=== PATIENT | male | born 1985 | race Caucasian/White ===

== ENCOUNTER 2017-11-28 14:20 | Emergency (ER) | payer OTHER ==
[2017-11-28 14:41] VITALS: BP 135/89
--- NOTE | 2017-11-28 15:14 | ER Document Report ---
ED Eye Complaint - General Chief Complaint: Eye Pain Stated Complaint: EYE PAIN Time Seen by Provider: 11/28/17 14:57 TRAVEL OUTSIDE OF THE [place]. IN LAST 30 DAYS: No - Related Data Allergies/Adverse Reactions: glycopyrrolate [From Robinul] Allergy (Severe, Verified 11/28/17 14:20) Anaphylaxis prochlorperazine edisylate [From Compazine] Allergy (Mild, Verified 11/28/17 14: 20) hives, itchy prochlorperazine maleate [From Compazine] Allergy (Mild, Verified 11/28/17 14:20 ) hives, itchy Past Medical History - Social History Smoking Status: Current Every Day Smoker Chew tobacco use (# tins/day): No Frequency of alcohol use: None Drug Abuse: None Family History: Reviewed & Not Pertinent Patient has suicidal ideation: No Patient has homicidal ideation: No 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 Denies: Hx Coronary Artery Disease, Hx Heart Attack, Hx Hypertension Pulmonary Medical History: Denies: Hx Asthma, Hx Bronchitis, Hx COPD, Hx Pneumonia Neurological Medical History: Denies: Hx Cerebrovascular Accident, Hx Seizures Renal/ Medical History: Denies: Hx Peritoneal Dialysis Musculoskeltal Medical History: Denies Hx Arthritis Past Surgical History: Reports: Hx Abdominal Surgery - umbilical hernia, Hx Appendectomy, Hx Bowel Surgery - Several exploratory laparotomies for lysis of adhesions, Hx Vascular Surgery - 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 Denies: Hx Pacemaker - Immunizations Hx Diphtheria, Pertussis, Tetanus Vaccination: Yes Physical Exam - Vital signs Vitals: Temp Pulse Resp BP Pulse Ox 98.8 F 96 18 135/89 H 99 11/28/17 14:38 11/28/17 14:38 11/28/17 14:38 11/28/17 14:38 11/28/17 14:38 Course - Vital Signs Vital signs: Temp Pulse Resp BP Pulse Ox 98.8 F 96 18 135/89 H 99 11/28/17 14:38 11/28/17 14:38 11/28/17 14:38 11/28/17 14:38 11/28/17 14:38 Discharge - Discharge Clinical Impression: Pain, eye, left Condition: Stable Disposition: HOME, SELF-CARE Additional Instructions: rest, F/U Dr. Webb in [facility] office 11/30 at 0940. Return here sooner if worse Prescriptions: Hydrocodone/Acetaminophen [Ecorse 5-325 mg Tablet] 1 tab PO BID #14 tablet Ibuprofen [Motrin 800 mg Tablet] 800 mg PO Q8H PRN #30 tab PRN Reason:
== END 2017-11-28 15:10 | disposition home or self-care (01) ==
LOC: ER 14:20
DX: H57.12 Ocular pain, left eye (principal)
CPT/HCPCS: 99283

== ENCOUNTER 2017-12-18 18:02 | Emergency (ER) | payer OTHER ==
--- NOTE | 2017-12-18 19:08 | ER Document Report ---
ED Medical Screen (RME) - General Chief Complaint: Eye Problem Stated Complaint: LEFT EYE INJURY Time Seen by Provider: 12/18/17 19:06 Notes: just had enucleation done last week on left eye. temporary prosthesis placed and hit in left eye tonight. now has increased pain. radiologist said get orbital ct without TRAVEL OUTSIDE OF THE [place] IN LAST 30 DAYS: No - Related Data Allergies/Adverse Reactions: glycopyrrolate [From Robinul] Allergy (Severe, Verified 12/18/17 18:02) Anaphylaxis prochlorperazine edisylate [From Compazine] Allergy (Mild, Verified 12/18/17 18: 02) hives, itchy prochlorperazine maleate [From Compazine] Allergy (Mild, Verified 12/18/17 18:02 ) hives, itchy Past Medical History 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 Denies: Hx Coronary Artery Disease, Hx Heart Attack, Hx Hypertension Pulmonary Medical History: Denies: Hx Asthma, Hx Bronchitis, Hx COPD, Hx Pneumonia Neurological Medical History: Denies: Hx Cerebrovascular Accident, Hx Seizures Renal/ Medical History: Denies: Hx Peritoneal Dialysis Musculoskeltal Medical History: Denies Hx Arthritis Past Surgical History: Reports: Hx Abdominal Surgery - umbilical hernia, Hx Appendectomy, Hx Bowel Surgery - Several exploratory laparotomies for lysis of adhesions, Hx Vascular Surgery - 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 Denies: Hx Pacemaker - Immunizations Hx Diphtheria, Pertussis, Tetanus Vaccination: Yes Physical Exam - Vital signs Vitals: Temp Pulse Resp BP Pulse Ox 99.0 F 77 18 134/91 H 100 12/18/17 18:06 12/18/17 18:06 12/18/17 18:06 12/18/17 18:06 12/18/17 18:06 Course - Vital Signs Vital signs: Temp Pulse Resp BP Pulse Ox 99.0 F 77 18 134/91 H 100 12/18/17 18:06 12/18/17 18:06 12/18/17 18:06 12/18/17 18:06 12/18/17 18:06
--- NOTE | 2017-12-18 19:39 | RADIOLOGY REPORT (SQ) ---
EXAM DESCRIPTION: CT ORBIT/SELLA WITHOUT COMPLETED DATE/TIME: 12/18/2017 7:16 pm REASON FOR STUDY: has temp prosthesis left eye/hit in eye has pain COMPARISON: None. TECHNIQUE: Noncontrasted images through the orbits windowed for bone and soft tissue. Additional co meek and sagittal reconstructed images reviewed. All images stored on PACS. All CT scanners at this facility use dose modulation, iterative reconstruction, and/or weight based d osing when appropriate to reduce radiation dose to as low as reasonably achievable (ALARA). [facility]: Dose Right [facility]: CareDose [facility]: Dose Right [facility]: Teradose 4D [facility]: [employer] RADIATION DOSE: CT Rad equipment meets quality standard of care and radiation dose reduction techniq ues were employed. CTDIvol: 30.4 mGy. DLP: 372 mGy-cm. mGy. LIMITATIONS: None. FINDINGS: FACIAL BONES: No fracture or bone lesion. ORBITS: Intact. No fracture. Right globe but intact. Left ocular prosthesis. Bilateral optic nerv es and extraocular muscles intact. Bilateral orbital fact clear. PARANASAL SINUSES: Clear. No significant mucosal thickening, mass or fluid. No nasal polyps. Maxilla ry sinus outlets are patent. SOFT TISSUES: No mass or edema. INFERIOR BRAIN: Limited view. No acute findings. OTHER: No other significant finding. IMPRESSION: NO ACUTE FINDINGS. 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 NO FRACTURE OF THE LEFT ORBIT. LEFT ORBITAL FAT IS CLEAR WITH NO EDEMA/INFLAMMATION, OR EVIDENCE OF HEMATOMA. EXTRAOCULAR MUSCLES A ND OPTIC NERVE APPEAR INTACT. TECHNICAL DOCUMENTATION: JOB ID: [id number] Quality ID # [id number]: Final reports with documentation of one or more dose reduction techniques (e.g., Au tomated exposure control, adjustment of the mA and/or kV according to patient size, use of iterative reconstruction technique) 2010 [employer]- All Rights Reserved Reading location - IP/workstation name: [email or web address]
[2017-12-18] MEDS ORDERED: ONDANSETRON 4 MG TAB.RAPDIS PO ONE (20:41)
[2017-12-18] MEDS ORDERED: HYDROCODONE/ACETAMINOPHEN 5-325 MG TABLET PO ONE (20:41)
[2017-12-18] MEDS ORDERED: ONDANSETRON ODT 4 MG TAB (6 TAB/ER DISP) PO PRN (20:41)
[2017-12-18] MEDS ORDERED: HYDROCODONE/ACETAMINOPHEN 5-325 MG (6 TAB/ER DISP) PO PRN (20:42)
--- NOTE | 2017-12-18 20:48 | ER Document Report ---
ED Eye Complaint - General Chief Complaint: Eye Problem Stated Complaint: LEFT EYE INJURY Time Seen by Provider: 12/18/17 19:06 Notes: Patient is a 32-year-old male comes emergency department for chief complaint of injury to his left eye/orbit area. 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 Ling with [facility]. Patient states that he was standing in his sense for him the football and he did not realize it and the football hit him on the left cheek area. He states he has pain when moving his eyeball around although it is not severe, states the area feels swollen and tender. He denies any bleeding from the nose, denies any headache, passing out, vomiting, focal numbness or weakness. He is not on a blood thinner. TRAVEL OUTSIDE OF THE [place] IN LAST 30 DAYS: No - Related Data Allergies/Adverse Reactions: glycopyrrolate [From [employer]] Allergy (Severe, Verified 12/18/17 18:02) Anaphylaxis prochlorperazine edisylate [From Compazine] Allergy (Mild, Verified 12/18/17 18: 02) hives, itchy prochlorperazine maleate [From Compazine] Allergy (Mild, Verified 12/18/17 18:02 ) hives, itchy Past Medical History - General Information source: Patient - Social History Smoking Status: Never Smoker Drug Abuse: None Lives with: Family Family History: Reviewed & Not Pertinent Patient has suicidal ideation: No Patient has homicidal ideation: No 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 Denies: Hx Coronary Artery Disease, Hx Heart Attack, Hx Hypertension Pulmonary Medical History: Denies: Hx Asthma, Hx Bronchitis, Hx COPD, Hx Pneumonia Neurological Medical History: Denies: Hx Cerebrovascular Accident, Hx Seizures Renal/ Medical History: Denies: Hx Peritoneal Dialysis Musculoskeltal Medical History: Denies Hx Arthritis Past Surgical History: Reports: Hx Abdominal Surgery - umbilical hernia, Hx Appendectomy, Hx Bowel Surgery - Several exploratory laparotomies for lysis of adhesions, Hx Vascular Surgery - 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 Denies: Hx Pacemaker - Immunizations Hx Diphtheria, Pertussis, Tetanus Vaccination: Yes Review of Systems - Review of Systems Constitutional: No symptoms reported EENT: See HPI Cardiovascular: No symptoms reported Respiratory: No symptoms reported Gastrointestinal: No symptoms reported Genitourinary: No symptoms reported Male Genitourinary: No symptoms reported Musculoskeletal: No symptoms reported Skin: No symptoms reported Hematologic/Lymphatic: No symptoms reported Neurological/Psychological: No symptoms reported Physical Exam - Vital signs Vitals: Temp Pulse Resp BP Pulse Ox 99.0 F 77 18 134/91 H 100 12/18/17 18:06 12/18/17 18:06 12/18/17 18:06 12/18/17 18:06 12/18/17 18:06 - General General appearance: Appears well In distress: None - HEENT Head: Other - There is very mild soft tissue swelling over the inner zygomatic area and infraorbital area over the left side of the face, no notable ecchymosis , no hematoma, no open wounds, no other signs of head injury Eyes: Other - Left eye prosthetic Extraocular movements intact: Yes Eyelashes: Normal Ears: Normal External canal: Normal Tympanic membrane: Normal Sinus: Normal Nasal: Normal Mouth/Lips: Normal Mucous membranes: Normal Pharynx: Normal Neck: Normal - Respiratory Respiratory status: No respiratory distress Breath sounds: Normal. No: Decreased air movement, Wheezing - Cardiovascular Rhythm: Regular. No: Tachycardia Heart sounds: Normal auscultation, S1 appreciated, S2 appreciated - Abdominal Inspection: Normal Tenderness: Nontender. No: Tender, Guarding - Back Back: Normal, Nontender. No: Tender - Extremities General upper extremity: Normal inspection, Nontender, Normal ROM, Normal strength General lower extremity: Normal inspection, Nontender, Normal ROM, Normal strength - Neurological Neuro grossly intact: Yes Cognition: Normal Orientation: AAOx4 [place] Coma Scale Eye Opening: Spontaneous [place] Coma Scale Verbal: Oriented Sabina Coma Scale Motor: Obeys Commands Ren[place] Coma Scale Total: 15 Speech: Normal Cranial nerves: Normal Cerebellar coordination: Normal Motor strength normal: LUE, RUE, LLE, RLE Additional motor exam normals: Equal wheel presser Sensory: Normal - Skin Skin Temperature: Warm Skin Moisture: Dry Skin Color: Normal Course - Re-evaluation Re-evalutation: Dr. Multani is professional athletes coach for ophthalmology, has already been contacted by Dr. Cleaning, reports he advised that if the CAT scan is negative for any acute abnormalities that patient can be discharged home with close follow-up. CT ORBIT/FACIAL IMPRESSION: NO ACUTE FINDINGS. 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 NO FRACTURE OF THE LEFT ORBIT. LEFT ORBITAL FAT IS CLEAR WITH NO EDEMA/INFLAMMATION, OR EVIDENCE OF HEMATOMA. EXTRAOCULAR MUSCLES AND OPTIC NERVE APPEAR INTACT. Patient is well-appearing on exam. Minimal soft tissue swelling where he was hit in the head/face with the ball, EOMs are intact, neurologically intact, prosthetic in place. I discussed CAT scan results with patient. Patient is very satisfied with this. Patient provided with CD, report, pain medicine for tonight. Discussed return precautions. Patient states understanding and agreement. - Vital Signs Vital signs: Temp Pulse Resp BP Pulse Ox 98.1 F 71 18 119/75 98 12/18/17 21:04 12/18/17 21:04 12/18/17 18:06 12/18/17 21:04 12/18/17 21:04 Discharge - Discharge Clinical Impression: History of enucleation of left eyeball Facial injury Qualifiers: Encounter type: initial encounter Qualified Code(s): S09.93XA - Unspecified injury of face, initial encounter Condition: Stable Disposition: HOME, SELF-CARE Additional Instructions: No acute findings are seen on your CAT scan evaluation. Please follow-up closely with Dr. Ling, bring the CD. Return for any concerning symptoms including headache, vomiting, severe swelling , or any other concerning symptoms.
[2017-12-18 21:05] VITALS: BP 119/75
== END 2017-12-18 21:08 | disposition home or self-care (01) ==
LOC: ER 18:02
DX: S05.92XA Unspecified injury of left eye and orbit, initial encounter (principal); W21.01XA Struck by football, initial encounter; Z86.711 Personal history of pulmonary embolism
CPT/HCPCS: 99283; 70480; S0119

== ENCOUNTER 2017-12-31 16:26 | Emergency (ER) | payer OTHER ==
[2017-12-31 17:08] LABS: APPEARANCE,URINE CLEAR; BILIRUBIN,URINE NEGATIVE (NEGATIVE); COLOR,URINE STRAW; GLUCOSE, URINE NEGATIVE (NEGATIVE); KETONES,URINE NEGATIVE (NEGATIVE); LEUKOCYTE ESTERASE,URINE NEGATIVE (NEGATIVE); NITRITE,URINE NEGATIVE (NEGATIVE); PROTEIN,URINE NEGATIVE (NEGATIVE); URINE SPECIFIC GRAVITY 1.004; UROBILINOGEN,URINE NEGATIVE mg/dL (<2.0)
[2017-12-31] MEDS ORDERED: NORMAL SALINE 1000 ML 1,000 ML IV ONE (17:45)
--- NOTE | 2017-12-31 17:45 | ER Document Report ---
ED Medical Screen (RME) - General Chief Complaint: Abdominal Pain Stated Complaint: ABDOMINAL PAIN Time Seen by Provider: 12/31/17 17:40 Mode of Arrival: Ambulatory Information source: Patient Notes: 32 yo male with constant midline abd pain, like muscle burning and tearing at 5am, woke him up. Had loose stool. Pain getting worse with nausea and vomiting, more intense when straightens up. Better when hunched over. Nausea. hx pancreatitis once, no diverticulitis. Few beers last night 3-4. No blood in vomit or stool. No fever or chills. Incarcerated bowel (during muscle work out) , ripped mesh surgery (last 2012) TRAVEL OUTSIDE OF THE [place] IN LAST 30 DAYS: No - Related Data Allergies/Adverse Reactions: glycopyrrolate [From Robinul] Allergy (Severe, Verified 12/31/17 16:34) Anaphylaxis prochlorperazine edisylate [From Compazine] Allergy (Mild, Verified 12/31/17 16: 34) hives, itchy prochlorperazine maleate [From Compazine] Allergy (Mild, Verified 12/31/17 16:34 ) hives, itchy Past Medical History - Social History Chew tobacco use (# tins/day): No Frequency of alcohol use: Occasional Drug Abuse: None 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 Denies: Hx Coronary Artery Disease, Hx Heart Attack, Hx Hypertension Pulmonary Medical History: Denies: Hx Asthma, Hx Bronchitis, Hx COPD, Hx Pneumonia Neurological Medical History: Denies: Hx Cerebrovascular Accident, Hx Seizures Renal/ Medical History: Denies: Hx Peritoneal Dialysis Musculoskeltal Medical History: Denies Hx Arthritis Past Surgical History: Reports: Hx Abdominal Surgery - umbilical hernia, Hx Appendectomy, Hx Bowel Surgery - Several exploratory laparotomies for lysis of adhesions, Hx Vascular Surgery - 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 Denies: Hx Pacemaker - Immunizations Hx Diphtheria, Pertussis, Tetanus Vaccination: Yes Physical Exam - Vital signs Vitals: Temp Pulse Resp BP Pulse Ox 98.4 F 86 18 136/93 H 98 12/31/17 16:42 12/31/17 16:42 12/31/17 16:42 12/31/17 16:42 12/31/17 16:42 Course - Vital Signs Vital signs: Temp Pulse Resp BP Pulse Ox 98.4 F 86 18 136/93 H 98 12/31/17 16:42 12/31/17 16:42 12/31/17 16:42 12/31/17 16:42 12/31/17 16:42 - Laboratory Laboratory results interpreted by me: 12/31/17 16:45 Urine Blood SMALL H
[2017-12-31] MEDS ORDERED: HYDROMORPHONE HCL INJ/PF 2 MG/ML AMPULE IV ONE ×2 (17:46→21:37)
[2017-12-31] MEDS ORDERED: ONDANSETRON 4 MG TAB.RAPDIS PO ONE (17:46)
--- NOTE | 2017-12-31 19:37 | ER Document Report ---
ED GI/ - General Chief Complaint: Abdominal Pain Stated Complaint: ABDOMINAL PAIN Time Seen by Provider: 12/31/17 17:40 Mode of Arrival: Ambulatory Notes: Patient is a 32-year-old male that comes emergency department for chief complaint of sharp midline abdominal pain. He states he started having pain this morning, it worsened over the day, he started vomiting currently has vomited twice. He has had multiple bowel surgeries for incarcerated bowel, has had mesh repair, he has also has had pancreatitis in the past. He has also had an appendectomy. He did have alcohol last night, he drinks irregularly. He denies fever or chills, he had a loose bowel movement earlier today, nonbloody. TRAVEL OUTSIDE OF THE [place] IN LAST 30 DAYS: No - Related Data Allergies/Adverse Reactions: glycopyrrolate [From [employer]] Allergy (Severe, Verified 12/31/17 16:34) Anaphylaxis prochlorperazine edisylate [From Compazine] Allergy (Mild, Verified 12/31/17 16: 34) hives, itchy prochlorperazine maleate [From Compazine] Allergy (Mild, Verified 12/31/17 16:34 ) hives, itchy Past Medical History - General Information source: Patient - Social History Smoking Status: Current Every Day Smoker Chew tobacco use (# tins/day): No Frequency of alcohol use: Occasional Drug Abuse: None Family History: Reviewed & Not Pertinent Patient has suicidal ideation: No Patient has homicidal ideation: No 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 Denies: Hx Coronary Artery Disease, Hx Heart Attack, Hx Hypertension Pulmonary Medical History: Denies: Hx Asthma, Hx Bronchitis, Hx COPD, Hx Pneumonia Neurological Medical History: Denies: Hx Cerebrovascular Accident, Hx Seizures Renal/ Medical History: Denies: Hx Peritoneal Dialysis Musculoskeltal Medical History: Denies Hx Arthritis Past Surgical History: Reports: Hx Abdominal Surgery - umbilical hernia, Hx Appendectomy, Hx Bowel Surgery - Several exploratory laparotomies for lysis of adhesions, Hx Vascular Surgery - 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 Denies: Hx Pacemaker - Immunizations Hx Diphtheria, Pertussis, Tetanus Vaccination: Yes Review of Systems - Review of Systems Constitutional: No symptoms reported EENT: No symptoms reported Cardiovascular: No symptoms reported Respiratory: No symptoms reported Gastrointestinal: See HPI Genitourinary: No symptoms reported Male Genitourinary: No symptoms reported Musculoskeletal: No symptoms reported Skin: No symptoms reported Hematologic/Lymphatic: No symptoms reported Neurological/Psychological: No symptoms reported Physical Exam - Vital signs Vitals: Temp Pulse Resp BP Pulse Ox 98.4 F 86 18 136/93 H 98 12/31/17 16:42 12/31/17 16:42 12/31/17 16:42 12/31/17 16:42 12/31/17 16:42 - General General appearance: Appears well In distress: None - HEENT Head: Normocephalic, Atraumatic Eyes: Normal Conjunctiva: Normal Extraocular movements intact: Yes Eyelashes: Normal Pupils: PERRL Mouth/Lips: Normal Mucous membranes: Normal Pharynx: Normal Neck: Normal - Respiratory Respiratory status: No respiratory distress Breath sounds: Normal. No: Decreased air movement, Wheezing - Cardiovascular Rhythm: Regular. No: Tachycardia Heart sounds: Normal auscultation, S1 appreciated, S2 appreciated - Abdominal Inspection: Other - Ventral scarring noted over the umbilical area and the areas above and below. Small right lower quadrant scar which is horizontal. Tenderness: Tender - Midline tenderness of the abdomen at and surrounding the scar, no induration, erythema, no severe guarding, remaining abdomen is benign - Back Back: Normal, Nontender. No: Tender - Extremities General upper extremity: Normal inspection, Nontender, Normal strength, Normal temperature General lower extremity: Normal inspection, Nontender, Normal strength, Normal temperature. No: Edema - Neurological Neuro grossly intact: Yes Cognition: Normal Orientation: AAOx4 Sabina Coma Scale Eye Opening: Spontaneous Sabina Coma Scale Verbal: Oriented Sabina Coma Scale Motor: Obeys Commands Sabina Coma Scale Total: 15 Speech: Normal Cranial nerves: Normal Cerebellar coordination: Normal Motor strength normal: LUE, RUE, LLE, RLE Additional motor exam normals: Equal bird keeper Sensory: Normal - Skin Skin Temperature: Warm Skin Moisture: Dry Skin Color: Normal Course - Re-evaluation Re-evalutation: Patient has mid abdominal pain with discomfort but there is no incarcerated hernia, erythema, induration to the area. Generalized abdominal tenderness otherwise. Patient is nontoxic in appearance. Unremarkable vital signs. Dr. Fisher was here in the department, general surgeon, he did evaluate the patient at bedside, he does recommend proceeding with CAT scan imaging to rule out any acute abdominal abnormality, however low suspicion of surgical abnormality based on examination. CBC, chemistry, lipase unremarkable. Patient improved with pain medication, after 1 additional dose his symptoms resolved. Patient admits that he was working in the yard, in addition to this he had a child jump on his abdomen and he thinks it might just be sore. CAT scan does not show any abnormality, no hernia, no traumatic or surgical findings. Reevaluated patient, he is much improved. He states he feels good and he wants to go home. He requested a lot of referrals including for general surgery, gastroenterology, and primary care. He states he already has some of them but he wants to make adjustments. I will provide patient with some symptom management because of his surgeries, injury, and pain. Discussed return precautions in detail with patient, patient states understanding and agreement. - Vital Signs Vital signs: Temp Pulse Resp BP Pulse Ox 97.4 F 75 20 127/79 H 100 12/31/17 23:04 12/31/17 23:04 12/31/17 23:04 12/31/17 23:04 12/31/17 23:04 - Laboratory Result Diagrams: 12/31/17 19:35 12/31/17 19:35 Laboratory results interpreted by me: 12/31/17 12/31/17 16:45 19:35 RDW 15.5 H Urine Blood SMALL H Discharge - Discharge Clinical Impression: Abdominal pain Qualifiers: Abdominal location: generalized Qualified Code(s): R10.84 - Generalized abdominal pain Vomiting Qualifiers: Vomiting type: unspecified Vomiting Intractability: non-intractable Nausea presence: with nausea Qualified Code(s): R11.2 - Nausea with vomiting, unspecified Condition: Stable Disposition: HOME, SELF-CARE Additional Instructions: The exact cause of your vomiting and pain tonight is uncertain. However your workup and CAT scan along with your evaluation do not indicate a surgical abnormality at this time. Please follow-up closely with the [facility], see referral, call to make your follow-up appointment. Follow-up is for primary care and sees Ian) and gastroenterology ([facility]) are also listed. Return if you worsen including returned vomiting, worsening pain, distention of the abdomen, Bloody bowel movements, temperature 100.4 or greater, or any other concerning or worsening symptoms. Prescriptions: Morphine Sulfate [Morphine Ir 15 Mg Tablet] 15 mg PO Q4HP PRN #10 tablet PRN Reason: Ondansetron [Zofran Odt 4 mg Tablet] 1 - 2 tab PO Q4H PRN #15 tab.rapdis PRN Reason: For Nausea/Vomiting Referrals: DAVID OH MD [ACTIVE STAFF] - Follow up as needed JOHN GOYAL MD [ACTIVE STAFF] - Follow up as needed [facility] [Provider Group] - Follow up in 3-5 days
[2017-12-31 19:53] LABS: ABSOLUTE EOSINOPHILS # (AUTO) 0.5 10^3/uL (0.0-0.6); ABSOLUTE LYMPHOCYTES (AUTO) 3.1 10^3/uL (0.5-4.7); ABSOLUTE MONOCYTES (AUTO) 0.6 10^3/uL (0.1-1.4); ABSOLUTE NEUT (AUTO) 5.5 10^3/uL (1.7-8.2); BASOPHILS % (AUTO) 0.3 % (0-2); EOSINOPHILS % (AUTO) 4.7 % (0-6); LYMPHOCYTES % (AUTO) 32.1 % (13-45); MEAN CORPUSCULAR HEMOGLOBIN 29.1 pg (27.0-33.4); MEAN CORPUSCULAR HGB CONC 34.1 g/dL (32.0-36.0); MEAN CORPUSCULAR VOLUME 85 fl (80-97); PLATELET COUNT 284 10^3/uL (150-450); RED BLOOD COUNT 5.16 10^6/uL (4.35-5.55); RED CELL DISTRIBUTION WIDTH 15.5 % (11.5-14.0); SEGMENTED NEUTROPHILS % (AUTO) 56.9 % (42-78); TOTAL CELLS COUNTED % (AUTO) 100 %; WHITE BLOOD COUNT 9.7 10^3/uL (4.0-10.5)
[2017-12-31 20:06] LABS: ALANINE AMINOTRANSFERASE 26 U/L (21-72); ALBUMIN 4.8 g/dL (3.5-5.0); ALKALINE PHOSPHATASE 84 U/L (38-126); ANION GAP 13 (5-19); ASPARTATE AMINO TRANSFERASE 21 U/L (17-59); BILIRUBIN,DIRECT 0.1 mg/dL (0.0-0.4); BILIRUBIN,TOTAL 0.3 mg/dL (0.2-1.3); BLOOD UREA NITROGEN 13 mg/dL (7-20); CARBON DIOXIDE 24 mmol/L (22-30); CHLORIDE 104 mmol/L (98-107); GLUCOSE 86 mg/dL (75-110); LIPASE 144.5 U/L (23-300); POTASSIUM 4.5 mmol/L (3.6-5.0); SODIUM 141.1 mmol/L (137-145); TOTAL PROTEIN 7.7 g/dL (6.3-8.2)
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
--- NOTE | 2017-12-31 22:39 | RADIOLOGY REPORT (SQ) ---
EXAM DESCRIPTION: CT ABD/PELVIS WITH IV ORAL COMPLETED DATE/TIME: 12/31/2017 10:13 pm REASON FOR STUDY: mid abd pain, vomiting COMPARISON: CT abdomen and pelvis 04/04/2014, CT chest/abdomen/pelvis 06/12/2013. TECHNIQUE: CT scan of the abdomen and pelvis performed using helical scanning technique with dynamic intravenous contrast injection and with oral contrast. Images reviewed with lung, soft tissue, and b one windows. Reconstructed coronal and sagittal MPR images reviewed. Delayed images for evaluation of the urinary system also acquired. All images stored on PACS. All CT scanners at this facility use dose modulation, iterative reconstruction, and/or weight based d osing when appropriate to reduce radiation dose to as low as reasonably achievable (ALARA). [facility]: Dose Right [facility]: CareDose [facility]: Dose Right [facility]: Teradose 4D [facility]: Penneo CONTRAST TYPE AND DOSE: contrast/concentration: Isovue 370.00 mg/ml; Total Contrast Delivered: 100.0 ml; Total Saline Delivered: 70.0 ml RENAL FUNCTION: Creatinine 0.79 RADIATION DOSE: CT Rad equipment meets quality standard of care and radiation dose reduction techniq ues were employed. CTDIvol: 10.6 - 15.1 mGy. DLP: 1550 mGy-cm.. LIMITATIONS: None. FINDINGS: LOWER CHEST: No significant findings. No nodules or infiltrates. LIVER: Normal size. No masses. No dilated ducts. SPLEEN: Normal size. No focal lesions. PANCREAS: No significant calcifications. No adjacent inflammation or peripancreatic fluid collections . Pancreatic duct not dilated. GALLBLADDER: Present. ADRENAL GLANDS: No significant masses or asymmetry. RIGHT KIDNEY AND URETER: No solid masses. No significant calcifications. No hydronephrosis or hyd roureter. LEFT KIDNEY AND URETER: No solid masses. No significant calcifications. No hydronephrosis or hydr oureter. AORTA AND VESSELS: No abdominal aortic aneurysm. RETROPERITONEUM: No retroperitoneal adenopathy, hemorrhage or masses. BOWEL AND PERITONEAL CAVITY: No dilated bowel loops or inflammatory changes. No free fluid or free ai r. No small bowel obstruction, the oral contrast has reached the cecum. APPENDIX: Surgically absent. PELVIS: No mass. No free fluid. The urinary bladder is partially distended. ABDOMINAL WALL: Postsurgical changes at the anterior abdominal wall. BONES: No significant or acute findings. IMPRESSION: No acute findings. No small bowel obstruction. TECHNICAL DOCUMENTATION: JOB ID: [id number] [facility] Quality ID # [id number]: Final reports with documentation of one or more dose reduction techniques (e.g., Au tomated exposure control, adjustment of the mA and/or kV according to patient size, use of iterative reconstruction technique) 2010 [employer]- All Rights Reserved Reading location - IP/workstation name: [email or web address]
[2017-12-31] MEDS ORDERED: ONDANSETRON ODT 4 MG TAB (6 TAB/ER DISP) PO PRN (23:01)
[2017-12-31] MEDS ORDERED: HYDROCODONE/ACETAMINOPHEN 5-325 MG (6 TAB/ER DISP) PO PRN (23:01)
[2017-12-31 23:16] VITALS: BP 127/79
== END 2017-12-31 23:24 | disposition home or self-care (01) ==
LOC: ER 16:26
DX: R10.84 Generalized abdominal pain (principal); R11.2 Nausea with vomiting, unspecified; F17.200 Nicotine dependence, unspecified, uncomplicated; Z86.711 Personal history of pulmonary embolism
CPT/HCPCS: 96376; 99285; 96361; 96374; 36415; 83605; 83690; 85025; 80053; 81001; 74177; S0119; J1170; J7030

== ENCOUNTER 2018-01-09 01:53 | Emergency (ER) | payer OTHER ==
[2018-01-09] MEDS ORDERED: ONDANSETRON HCL INJ/PF 4 MG/2 ML SDV ONE ×2 (03:40→05:17)
[2018-01-09] MEDS ORDERED: HYDROMORPHONE HCL INJ/PF 2 MG/ML AMPULE ONE ×2 (03:40→05:17)
[2018-01-09 04:03] LABS: ABSOLUTE BASOPHILS # (AUTO) 0.1 10^3/uL (0.0-0.2); ABSOLUTE EOSINOPHILS # (AUTO) 0.5 10^3/uL (0.0-0.6); ABSOLUTE LYMPHOCYTES (AUTO) 3.1 10^3/uL (0.5-4.7); ABSOLUTE MONOCYTES (AUTO) 0.6 10^3/uL (0.1-1.4); ABSOLUTE NEUT (AUTO) 4.9 10^3/uL (1.7-8.2); BASOPHILS % (AUTO) 0.6 % (0-2); EOSINOPHILS % (AUTO) 5.8 % (0-6); HEMATOCRIT 49.2 % (37.9-51.0); HEMOGLOBIN 16.9 g/dL (13.5-17.0); LYMPHOCYTES % (AUTO) 33.8 % (13-45); MEAN CORPUSCULAR HEMOGLOBIN 29.2 pg (27.0-33.4); MEAN CORPUSCULAR HGB CONC 34.3 g/dL (32.0-36.0); MEAN CORPUSCULAR VOLUME 85 fl (80-97); MONOCYTES % (AUTO) 6.2 % (3-13); PLATELET COUNT 295 10^3/uL (150-450); RED BLOOD COUNT 5.78 10^6/uL (4.35-5.55); RED CELL DISTRIBUTION WIDTH 15.7 % (11.5-14.0); SEGMENTED NEUTROPHILS % (AUTO) 53.6 % (42-78); TOTAL CELLS COUNTED % (AUTO) 100 %; WHITE BLOOD COUNT 9.1 10^3/uL (4.0-10.5)
--- NOTE | 2018-01-09 04:07 | ER Document Report ---
ED General - General Information source: Patient TRAVEL OUTSIDE OF THE U.S. IN LAST 30 DAYS: No <JET JENSEN - Last Filed: 01/09/18 06:51> <MURALI VARGHESE - Last Filed: 01/09/18 07:15> - General Chief Complaint: Abdominal Pain Stated Complaint: ABDOMINAL PAIN/VOMITING Time Seen by Provider: 01/09/18 03:29 Notes: A 32-year-old male with a history of multiple umbilical hernias, lupus, open abdominal surgery for a ruptured mesenteric artery from an accident while serving [employer] presents with complaint of abdominal pain that started today. Patient's pain is located along his surgical scar which appears clean dry and intact. He has had associated nausea with 2 episodes of vomiting. He describes the pain as burning, constant. He denies diarrhea. He says his last bowel movement was yesterday. Denies any fever, chills, chest pain, shortness of breath. Was seen recently for similar symptoms and a CAT scan was performed which did not show any acute process. Has been taking pain medication for his abdominal pain and does have an upcoming surgical appointment. He believes the worsening of abdominal pain is secondary to a constant dry cough that he has been experiencing over the last few days. (JET JENSEN) - Related Data Allergies/Adverse Reactions: glycopyrrolate [From Robinul] Allergy (Severe, Verified 12/31/17 16:34) Anaphylaxis prochlorperazine edisylate [From Compazine] Allergy (Mild, Verified 12/31/17 16: 34) hives, itchy prochlorperazine maleate [From Compazine] Allergy (Mild, Verified 12/31/17 16:34 ) hives, itchy Past Medical History - Social History Smoking Status: Current Every Day Smoker Frequency of alcohol use: None Drug Abuse: None Lives with: Family Family History: Reviewed & Not Pertinent Patient has suicidal ideation: No Patient has homicidal ideation: No 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 Denies: Hx Coronary Artery Disease, Hx Heart Attack, Hx Hypertension Pulmonary Medical History: Denies: Hx Asthma, Hx Bronchitis, Hx COPD, Hx Pneumonia Neurological Medical History: Denies: Hx Cerebrovascular Accident, Hx Seizures Renal/ Medical History: Denies: Hx Peritoneal Dialysis GI Medical History: Reports: Hx Hiatal Hernia, Other - Regulated hernia. Umbilical hernia. Musculoskeltal Medical History: Denies Hx Arthritis Traumatic Medical History: Reports: Other Past Surgical History: Reports: Hx Abdominal Surgery - umbilical hernia, Hx Appendectomy, Hx Bowel Surgery - Several exploratory laparotomies for lysis of adhesions, Hx Vascular Surgery - 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 Denies: Hx Pacemaker - Immunizations Hx Diphtheria, Pertussis, Tetanus Vaccination: Yes <JET JENSEN E - Last Filed: 01/09/18 06:51> Review of Systems - Review of Systems Constitutional: denies: Chills, Fever EENT: No symptoms reported Cardiovascular: denies: Chest pain Respiratory: See HPI Gastrointestinal: Abdominal pain, Nausea, Vomiting, Last bowel movement - yesterday. denies: Diarrhea, Constipation, Black stools <JET JENSEN E - Last Filed: 01/09/18 06:51> Physical Exam - Vital signs Interpretation: Normal, Hypertensive - General General appearance: Appears well, Alert In distress: Mild - HEENT Head: Normocephalic, Atraumatic Eyes: Normal, Other - left eye absent Extraocular movements intact: Yes Pupils: PERRL Mucous membranes: Moist Pharynx: Normal Neck: Normal - Respiratory Respiratory status: No respiratory distress Chest status: Nontender Breath sounds: Normal Chest palpation: Normal - Cardiovascular Rhythm: Regular Heart sounds: Normal auscultation Murmur: No Pulses: Normal: Radial, Dorsalis pedis Normal capillary refill: Yes - Abdominal Inspection: Normal Distension: No distension Bowel sounds: Normal Tenderness: Tender - Tender to palpation around the umbilicus overlying the surgical scar that is clean dry and intact. No: Guarding, Rebound Organomegaly: No organomegaly - Back Back: Normal, Nontender. No: CVA tenderness - Extremities General upper extremity: Normal inspection, Nontender, Normal color, Normal ROM , Normal temperature. No: Edema General lower extremity: Normal inspection, Nontender, Normal color, Normal ROM , Normal temperature, Normal weight bearing. No: Edema, Anabela's sign - Neurological Neuro grossly intact: Yes Cognition: Normal Orientation: AAOx4 [place] Coma Scale Eye Opening: Spontaneous [place] Coma Scale Verbal: Oriented [place] Coma Scale Motor: Obeys Commands [place] Coma Scale Total: 15 Speech: Normal Motor strength normal: LUE, RUE, LLE, RLE Sensory: Normal - Psychological Associated symptoms: Normal affect, Normal mood - Skin Skin Temperature: Warm Skin Moisture: Dry Skin Color: Normal <ALISSONJET Barrett - Last Filed: 01/09/18 06:51> - Vital signs Vitals: Temp Pulse BP Pulse Ox 98.9 F 96 141/90 H 100 01/09/18 01:57 01/09/18 01:57 01/09/18 01:57 01/09/18 01:57 Course - Laboratory Result Diagrams: 01/09/18 03:25 01/09/18 03:25 <JET JENSEN - Last Filed: 01/09/18 06:51> - Laboratory Result Diagrams: 01/09/18 03:25 01/09/18 03:25 <MURALI VARGHESE - Last Filed: 01/09/18 07:15> - Re-evaluation Re-evalutation: 01/09/18 05:56 32-year-old male with a history of multiple abdominal surgeries presents with complaint of abdominal pain that started earlier today. Patient pain is located along his surgical scar and in the umbilical area. He states that he has been coughing for the last week and believes that may have caused another umbilical hernia. Patient has had associated nausea, vomiting. His last bowel movement was 1 day prior to arrival and he states it was normal and color and caliber. Patient was recently seen in the emergency department for similar abdominal pain but the CAT scan at that time did not show any acute process. Patient received Zofran, Dilaudid, IV fluids during his ED course. (JET JENSEN) 01/09/18 07:14 Patient received at sign out from Dr. Jensen. CT scan pending at time of signout. CT scan results were reviewed. Nothing acute. Will proceed as instructed to discharge patient if able to tolerate p.o. and will advise he follow-up with his regular doctors for his chronic abdominal pain. Labs were reviewed which were unremarkable. (MURALI VARGHESE) - Vital Signs Vital signs: Temp Pulse Resp BP Pulse Ox 98.9 F 96 141/90 H 100 01/09/18 01:57 01/09/18 01:57 01/09/18 01:57 01/09/18 01:57 - Laboratory Laboratory results interpreted by me: 01/09/18 01/09/18 03:25 03:25 RBC 5.78 H RDW 15.7 H Direct Bilirubin 0.6 H Total Protein 9.3 H Discharge <JET JENSEN E - Last Filed: 01/09/18 06:51> <MURALI VARGHESE - Last Filed: 01/09/18 07:15> - Discharge Clinical Impression: Abdominal pain Qualifiers: Abdominal location: periumbilical Qualified Code(s): R10.33 - Periumbilical pain Nausea & vomiting Qualifiers: Vomiting type: unspecified Vomiting Intractability: non-intractable Qualified Code(s): R11.2 - Nausea with vomiting, unspecified Condition: Good Disposition: HOME, SELF-CARE Instructions: Abdominal Pain ([facility]), Antinausea Medication ([facility]), Vomiting ([facility]) Additional Instructions: Please keep your already scheduled appointment with your surgeon on , January 11, 2018. Her CAT scan today did not show evidence of hernia, bowel obstruction. Prescriptions: Hydrocodone/Acetaminophen [[place] 5-325 mg Tablet] 1 tab PO Q6H PRN #8 tablet PRN Reason: Pain Scale Of 2 Ondansetron HCl [Zofran 4 mg Tablet] 1 - 2 tab PO Q4H PRN #10 tablet PRN Reason: Referrals: ISAAC MITTAL MD [Primary Care Provider] - Follow up as needed
[2018-01-09 04:09] LABS: ALANINE AMINOTRANSFERASE 27 U/L (21-72); ALKALINE PHOSPHATASE 93 U/L (38-126); ANION GAP 13 (5-19); ASPARTATE AMINO TRANSFERASE 43 U/L (17-59); BILIRUBIN,DIRECT 0.6 mg/dL (0.0-0.4); BILIRUBIN,TOTAL 0.6 mg/dL (0.2-1.3); BLOOD UREA NITROGEN 16 mg/dL (7-20); CALCIUM 10.2 mg/dL (8.4-10.2); CARBON DIOXIDE 24 mmol/L (22-30); CHLORIDE 106 mmol/L (98-107); GLUCOSE 92 mg/dL (75-110); LIPASE 138.8 U/L (23-300); POTASSIUM 4.6 mmol/L (3.6-5.0); SODIUM 142.8 mmol/L (137-145); TOTAL PROTEIN 9.3 g/dL (6.3-8.2)
[2018-01-09 04:26] LABS: APPEARANCE,URINE CLEAR; BILIRUBIN,URINE NEGATIVE (NEGATIVE); COLOR,URINE YELLOW; GLUCOSE, URINE NEGATIVE (NEGATIVE); KETONES,URINE NEGATIVE (NEGATIVE); LEUKOCYTE ESTERASE,URINE NEGATIVE (NEGATIVE); NITRITE,URINE NEGATIVE (NEGATIVE); PROTEIN,URINE NEGATIVE (NEGATIVE); URINE SPECIFIC GRAVITY 1.021; UROBILINOGEN,URINE NEGATIVE mg/dL (<2.0)
[2018-01-09] MEDS ORDERED: ONDANSETRON HCL INJ/PF 4 MG/2 ML SDV IV ONE ×2 (05:27→05:28)
[2018-01-09] MEDS ORDERED: HYDROMORPHONE HCL INJ/PF 2 MG/ML AMPULE IV ONE ×2 (05:27→05:28)
--- NOTE | 2018-01-09 06:46 | RADIOLOGY REPORT (SQ) ---
EXAM DESCRIPTION: CT ABDOMEN AND PELVIS WITH CONTRAST CLINICAL HISTORY: Right and left lower quadrant abdominal pain. Reported prior appendectomy COMPARISON: 12/31/2017 TECHNIQUE: CT of the abdomen and pelvis performed following IV administration of iodinated contrast. DLP: 1473.99 mGycm FINDINGS: FINDINGS: Lung Bases: The visualized lung bases demonstrate bilateral dependent atelectasis. Bones: No destructive bone lesions identified. Abdomen: Liver: The liver has normal size and density. No intrahepatic mass or biliary dilatation. Gallbladder: No calcified gallstones. Spleen, Pancreas, and Adrenal Glands: The spleen, pancreas, and adrenal glands are unremarkable. Kidneys: The kidneys have normal size and contour without evidence of solid mass or hydronephrosis. Vasculature: The aorta and IVC have normal caliber and position. The portal vein is patent. The proximal visceral and renal arteries are patent. Stomach: The stomach and duodenum have normal course. Other: No free intraperitoneal air. No free fluid or lymphadenopathy. Pelvis: Bladder: Urinary bladder is unremarkable. Bowel: No dilated loops of large or small bowel. Appendix: No evidence of appendicitis. Reported history of appendectomy. Pelvis: Prostate is not enlarged. IMPRESSION: 1. No acute inflammatory or obstructive process identified. This exam was performed according to our departmental dose-optimization program, which includes automated exposure control, adjustment of the mA and/or kV according to patient size and/or use of iterative reconstruction technique.
[2018-01-09 07:15] VITALS: BP 122/83
== END 2018-01-09 07:19 | disposition home or self-care (01) ==
LOC: ER 01:53
DX: R10.33 Periumbilical pain (principal); R11.2 Nausea with vomiting, unspecified; R05 Cough; F17.200 Nicotine dependence, unspecified, uncomplicated; Z87.19 Personal history of other diseases of the digestive system; Z98.890 Other specified postprocedural states; Z90.49 Acquired absence of other specified parts of digestive tract
CPT/HCPCS: 96376; 99284; 96374; 96375; 36415; 83605; 83690; 85025; 80053; 81001; 74177; J1170; J2405

== ENCOUNTER 2018-01-16 08:30 | Emergency (ER) | payer OTHER ==
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
[2018-01-16 10:56] VITALS: BP 116/87
== END 2018-01-16 10:03 | disposition home or self-care (01) ==
LOC: ER 08:30
DX: K43.9 Ventral hernia without obstruction or gangrene (principal); R10.84 Generalized abdominal pain; Z87.828 Personal history of other (healed) physical injury and trauma; Z90.49 Acquired absence of other specified parts of digestive tract; Z87.19 Personal history of other diseases of the digestive system; Z87.892 Personal history of anaphylaxis; Z88.8 Allergy status to other drugs, medicaments and biological substances
CPT/HCPCS: 99283

== ENCOUNTER 2018-01-24 15:26 | Emergency (ER) | payer OTHER ==
[2018-01-24] MEDS ORDERED: FENTANYL CITRATE INJ/PF 100 MCG/2 ML AMPUL IV ONE ×2 (17:11→21:20)
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
[2018-01-24] MEDS ORDERED: ONDANSETRON 4 MG TAB.RAPDIS PO ONE (21:20)
[2018-01-24 22:25] LABS: ABSOLUTE EOSINOPHILS # (AUTO) 0.3 10^3/uL (0.0-0.6); ABSOLUTE LYMPHOCYTES (AUTO) 2.9 10^3/uL (0.5-4.7); ABSOLUTE MONOCYTES (AUTO) 0.6 10^3/uL (0.1-1.4); ABSOLUTE NEUT (AUTO) 4.5 10^3/uL (1.7-8.2); BASOPHILS % (AUTO) 0.5 % (0-2); EOSINOPHILS % (AUTO) 3.8 % (0-6); HEMATOCRIT 43.6 % (37.9-51.0); HEMOGLOBIN 14.6 g/dL (13.5-17.0); LYMPHOCYTES % (AUTO) 34.9 % (13-45); MEAN CORPUSCULAR HEMOGLOBIN 28.7 pg (27.0-33.4); MEAN CORPUSCULAR HGB CONC 33.5 g/dL (32.0-36.0); MEAN CORPUSCULAR VOLUME 86 fl (80-97); MONOCYTES % (AUTO) 7.1 % (3-13); PLATELET COUNT 272 10^3/uL (150-450); RED CELL DISTRIBUTION WIDTH 15.6 % (11.5-14.0); SEGMENTED NEUTROPHILS % (AUTO) 53.7 % (42-78); TOTAL CELLS COUNTED % (AUTO) 100 %; WHITE BLOOD COUNT 8.3 10^3/uL (4.0-10.5)
[2018-01-24 23:00] LABS: ALANINE AMINOTRANSFERASE 28 U/L (21-72); ALBUMIN 4.4 g/dL (3.5-5.0); ALKALINE PHOSPHATASE 73 U/L (38-126); ANION GAP 9 (5-19); ASPARTATE AMINO TRANSFERASE 17 U/L (17-59); BILIRUBIN,DIRECT 0.2 mg/dL (0.0-0.4); BILIRUBIN,TOTAL 0.7 mg/dL (0.2-1.3); BLOOD UREA NITROGEN 12 mg/dL (7-20); CALCIUM 9.8 mg/dL (8.4-10.2); CARBON DIOXIDE 27 mmol/L (22-30); CHLORIDE 103 mmol/L (98-107); GLUCOSE 100 mg/dL (75-110); POTASSIUM 4.6 mmol/L (3.6-5.0); TOTAL PROTEIN 7.4 g/dL (6.3-8.2)
[2018-01-25] MEDS ORDERED: ONDANSETRON HCL INJ/PF 4 MG/2 ML SDV IV ONE (00:33)
[2018-01-25] MEDS ORDERED: FENTANYL CITRATE INJ/PF 100 MCG/2 ML AMPUL IV ONE (00:34)
[2018-01-25] MEDS ORDERED: FENTANYL CITRATE INJ/PF 100 MCG/2 ML AMPUL ONE (00:36)
[2018-01-25] MEDS ORDERED: ONDANSETRON HCL INJ/PF 4 MG/2 ML SDV ONE (00:36)
--- NOTE | 2018-01-25 00:52 | RADIOLOGY REPORT (SQ) ---
EXAM DESCRIPTION: CT ABDOMEN AND PELVIS WITH CONTRAST CLINICAL HISTORY: Diffuse abdominal pain COMPARISON: 01/09/2018 TECHNIQUE: CT of the abdomen and pelvis performed following IV administration of 100 mL of Isovue-370. Delayed images obtained. Oral contrast also administered. DLP: 1665.41 mGycm FINDINGS: Lung Bases: The visualized lung bases are clear. Bones: No destructive bone lesions identified. Abdomen: Liver: The liver has normal size and density. No intrahepatic mass or biliary dilatation. Gallbladder: No calcified gallstones. Spleen, Pancreas, and Adrenal Glands: The spleen, pancreas, and adrenal glands are unremarkable. Kidneys: The kidneys have normal size and contour without evidence of solid mass or hydronephrosis. Vasculature: The aorta and IVC have normal caliber and position. The portal vein is patent. The proximal visceral and renal arteries are patent. Stomach: The stomach and duodenum have normal course. Other: No free intraperitoneal air. No free fluid or lymphadenopathy. Pelvis: Bladder: Urinary bladder is unremarkable. Bowel: No dilated loops of large or small bowel. Appendix: No evidence of appendicitis. Reported previous appendectomy. Pelvis: Prostate is not enlarged. IMPRESSION: 1. No acute inflammatory or obstructive process identified. This exam was performed according to our departmental dose-optimization program, which includes automated exposure control, adjustment of the mA and/or kV according to patient size and/or use of iterative reconstruction technique.
[2018-01-25] MEDS ORDERED: HYDROCODONE/ACETAMINOPHEN 5-325 MG (6 TAB/ER DISP) PO PRN (01:54)
[2018-01-25 02:08] VITALS: BP 119/86
== END 2018-01-25 02:14 | disposition home or self-care (01) ==
LOC: ER 15:26
DX: R10.33 Periumbilical pain (principal); F17.200 Nicotine dependence, unspecified, uncomplicated; Z86.711 Personal history of pulmonary embolism
CPT/HCPCS: 96376; 99284; 96374; 96375; 36415; 83605; 83690; 85025; 80053; 74177; S0119; J3010 ×2; J2405

== ENCOUNTER 2018-02-20 04:47 | Emergency (ER) | payer OTHER ==
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
--- NOTE | 2018-02-20 07:30 | RADIOLOGY REPORT (SQ) ---
EXAM DESCRIPTION: CT ABDOMEN AND PELVIS WITHOUT CONTRAST CLINICAL HISTORY: Diffuse abdominal pain. COMPARISON: 01/25/2018 TECHNIQUE: CT of the abdomen and pelvis without IV contrast. Evaluation of the solid organs and vasculature is suboptimal due to lack of IV contrast. DLP: 767.17 mGy-cm FINDINGS: Lung Bases: The visualized lung bases are clear. Bones: No destructive bone lesions identified. Abdomen: Liver: The liver has normal size and density. Gallbladder: No calcified gallstones. Spleen, Pancreas, and Adrenal Glands: The spleen, pancreas, and adrenal glands are unremarkable. Kidneys: The kidneys have normal size and contour without evidence of hydronephrosis. No obstructing ureteral calculi. Vasculature: The aorta and IVC have normal caliber and position. Stomach: The stomach and duodenum have normal course. Other: No free intraperitoneal air. No free fluid or lymphadenopathy. Pelvis: Bladder: Urinary bladder is unremarkable. Bowel: No dilated loops of large or small bowel. Appendix: Reported prior appendectomy. Pelvis: Prostate is not enlarged. IMPRESSION: 1. No acute inflammatory or obstructive process identified. This exam was performed according to our departmental dose-optimization program, which includes automated exposure control, adjustment of the mA and/or kV according to patient size and/or use of iterative reconstruction technique.
[2018-02-20 08:49] LABS: APPEARANCE,URINE CLEAR; BILIRUBIN,URINE NEGATIVE (NEGATIVE); COLOR,URINE YELLOW; GLUCOSE, URINE NEGATIVE (NEGATIVE); KETONES,URINE NEGATIVE (NEGATIVE); LEUKOCYTE ESTERASE,URINE NEGATIVE (NEGATIVE); NITRITE,URINE NEGATIVE (NEGATIVE); PROTEIN,URINE NEGATIVE (NEGATIVE); URINE SPECIFIC GRAVITY 1.028; UROBILINOGEN,URINE NEGATIVE mg/dL (<2.0)
[2018-02-20] MEDS ORDERED: HYDROMORPHONE HCL INJ/PF 2 MG/ML AMPULE IM ONE (09:18)
[2018-02-20 09:38] LABS: ABSOLUTE EOSINOPHILS # (AUTO) 0.3 10^3/uL (0.0-0.6); ABSOLUTE LYMPHOCYTES (AUTO) 2.1 10^3/uL (0.5-4.7); ABSOLUTE MONOCYTES (AUTO) 0.5 10^3/uL (0.1-1.4); ABSOLUTE NEUT (AUTO) 4.1 10^3/uL (1.7-8.2); BASOPHILS % (AUTO) 0.5 % (0-2); EOSINOPHILS % (AUTO) 4.5 % (0-6); HEMATOCRIT 43.3 % (37.9-51.0); MEAN CORPUSCULAR HEMOGLOBIN 29.8 pg (27.0-33.4); MEAN CORPUSCULAR HGB CONC 34.6 g/dL (32.0-36.0); MEAN CORPUSCULAR VOLUME 86 fl (80-97); MONOCYTES % (AUTO) 7.1 % (3-13); PLATELET COUNT 244 10^3/uL (150-450); RED BLOOD COUNT 5.01 10^6/uL (4.35-5.55); RED CELL DISTRIBUTION WIDTH 14.2 % (11.5-14.0); SEGMENTED NEUTROPHILS % (AUTO) 57.9 % (42-78); TOTAL CELLS COUNTED % (AUTO) 100 %
[2018-02-20 09:57] LABS: ALANINE AMINOTRANSFERASE 30 U/L (21-72); ALBUMIN 4.3 g/dL (3.5-5.0); ALKALINE PHOSPHATASE 66 U/L (38-126); ANION GAP 14 (5-19); ASPARTATE AMINO TRANSFERASE 21 U/L (17-59); BILIRUBIN,DIRECT 0.4 mg/dL (0.0-0.4); BILIRUBIN,TOTAL 0.8 mg/dL (0.2-1.3); BLOOD UREA NITROGEN 22 mg/dL (7-20); CALCIUM 9.7 mg/dL (8.4-10.2); CARBON DIOXIDE 21 mmol/L (22-30); CHLORIDE 107 mmol/L (98-107); GLUCOSE 111 mg/dL (75-110); LIPASE 102.9 U/L (23-300); POTASSIUM 4.7 mmol/L (3.6-5.0); SODIUM 141.6 mmol/L (137-145); TOTAL PROTEIN 7.6 g/dL (6.3-8.2)
[2018-02-20 11:04] VITALS: BP 127/84
== END 2018-02-20 11:02 | disposition home or self-care (01) ==
LOC: ER 04:47
DX: R10.84 Generalized abdominal pain (principal); G89.29 Other chronic pain; L90.5 Scar conditions and fibrosis of skin; R11.0 Nausea; F17.200 Nicotine dependence, unspecified, uncomplicated; Z90.49 Acquired absence of other specified parts of digestive tract; Z88.8 Allergy status to other drugs, medicaments and biological substances; Z83.79 Family history of other diseases of the digestive system; Z98.890 Other specified postprocedural states
CPT/HCPCS: 99284; 96372; 36415; 83690; 85025; 80053; 81001; 74176; J1170

== ENCOUNTER 2018-09-01 01:05 | Emergency (ER) | payer OTHER ==
[2018-09-01 01:34] VITALS: BP 135/85
[2018-09-01] MEDS ORDERED: MORPHINE SULFATE IR 15 MG TABLET PO ONE (02:36)
[2018-09-01] MEDS ORDERED: KETOROLAC TROMETHAMINE 60 MG/2 ML SDV IM ONE (02:36)
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
== END 2018-09-01 03:05 | disposition home or self-care (01) ==
LOC: ER 01:05
DX: R10.9 Unspecified abdominal pain (principal); L90.5 Scar conditions and fibrosis of skin; Z86.711 Personal history of pulmonary embolism
CPT/HCPCS: 99284; 96372; J1885

== ENCOUNTER 2019-01-24 04:55 | Emergency (ER) | payer OTHER ==
--- NOTE | 2019-01-24 07:03 | ER Document Report ---
ED General - General Chief Complaint: Abdominal Pain Stated Complaint: ABDOMINAL PAIN Time Seen by Provider: 01/24/19 07:02 Primary Care Provider: [facility] [Provider Group] - Follow up in 3-5 days Notes: Patient is a 33-year-old male that presents to the emergency department for chief complaint of abdominal pain. Patient has a history of multiple abdominal surgeries including ventral hernia repair with mesh. He states over the weekend he was doing some lifting and helping a friend move some heavy objects, and felt tearing across his mid abdomen, he had similar symptoms back in July, and was seen by nasal surgeon, did not think he needed any further surgery at that time, but he does feel that there is an opening in the soft tissue in his mid abdomen. He denies feeling any hernia come through but has been having issues with this. He did have vomiting once associated with the pain, is been taking as needed morphine with some help of his symptoms. He denies having any diarrhea, or c onstipation or difficulty moving his bowels. Denies any persistent vomiting, denies any fevers, chills, night sweats, dysuria or hematuria. Past Medical History: Denies chronic medical conditions Past Surgical History: Multiple abdominal surgeries, including ventral hernia repair with mesh, and laparotomy Social History: Denies current tobacco, alcohol or drug use. Family History: Reviewed and noncontributory for presenting illness Allergies: Reviewed, see documented allergy list. REVIEW OF SYSTEMS: Other than noted above, the 12 point review of systems was reviewed with the patient and were negative, all pertinent findings are included in the HPI. PHYSICAL EXAMINATION: Vital signs reviewed, nursing noted reviewed. GENERAL: Well-appearing, well-nourished and in no acute distress. HEAD: Atraumatic, normocephalic. EYES: Eyes appear normal, extraocular movements intact, sclera anicteric, conjunctiva are normal. ENT: nares patent, oropharynx clear without exudates. Moist mucous membranes. NECK: Normal range of motion, supple without lymphadenopathy LUNGS: Breath sounds clear to auscultation bilaterally and equal. No wheezes rales or rhonchi. HEART: Regular rate and rhythm without murmurs ABDOMEN: Soft, there is mild midline tenderness, along the patient's well-healed surgical incisional scar, no palpable hernia with Valsalva, normoactive bowel sounds. No rebound, guarding, or rigidity. No masses appreciated. EXTREMITIES: Nontender, good range of motion, no pitting or edema. NEUROLOGICAL: No focal neurological deficits. Moves all extremities spontaneously Motor and sensory grossly intact on exam. PSYCH: Normal mood, normal affect. SKIN: Warm, Dry, normal turgor, no rashes or lesions noted on exposed skin TRAVEL OUTSIDE OF THE [place] IN LAST 30 DAYS: No - Related Data Allergies/Adverse Reactions: glycopyrrolate [From Robinul] Allergy (Severe, Verified 09/01/18 02:55) Anaphylaxis prochlorperazine edisylate [From Compazine] Allergy (Mild, Verified 09/01/18 02:55) hives, itchy prochlorperazine maleate [From Compazine] Allergy (Mild, Verified 09/01/18 02:55) hives, itchy Past Medical History - Social History Smoking Status: Unknown if Ever Smoked Family History: Reviewed & Not Pertinent, Other - CROHN'S DIS. Patient has suicidal ideation: No Patient has homicidal ideation: No 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 Denies: Hx Coronary Artery Disease, Hx Heart Attack, Hx Hypertension Pulmonary Medical History: Denies: Hx Asthma, Hx Bronchitis, Hx COPD, Hx Pneumonia Neurological Medical History: Denies: Hx Cerebrovascular Accident, Hx Seizures Renal/ Medical History: Denies: Hx Peritoneal Dialysis GI Medical History: Reports: Hx Hiatal Hernia Musculoskeletal Medical History: Denies Hx Arthritis Past Surgical History: Reports: Hx Abdominal Surgery - umbilical hernia, Hx Appendectomy, Hx Bowel Surgery - Several exploratory laparotomies for lysis of adhesions, Hx Vascular Surgery - 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 Denies: Hx Pacemaker - Immunizations Hx Diphtheria, Pertussis, Tetanus Vaccination: Yes Physical Exam - Vital signs Vitals: Temp Pulse Resp BP Pulse Ox 98.3 F 86 16 133/89 H 99 01/24/19 04:56 01/24/19 04:56 01/24/19 04:56 01/24/19 04:56 01/24/19 04:56 Course - Re-evaluation Re-evalutation: Patient seen and examined vital signs reviewed. Patient was evaluated and treated as appropriate for the patient's presenting symptoms and complaint, with consideration of any critical or life threatening conditions that may be associated with their obtained history and exam as noted above. Patient was treated with p.o. morphine The patient was re-evaluated and was stable Evaluation was most consistent with abdominal wall pain, most likely muscular skeletal related to ventral hernia, defect, however the patient has mesh, and no palpable hernia is protruding. At this point I feel that the patient can be discharged, will give him a prescription for morphine to take as needed, he does have appointment set up with the [facility], and will be scheduled soon to see a surgeon, patient was agreeable to this plan of care, he has no evidence of incarcerated hernia, or other concerning physical exam findings, to warrant CT imaging or blood work at this time. Plan of care was discussed with the patient at this point, after careful consideration I feel that that patient can be discharged from the emergency department, the patient was educated treatments and reasons to return to the emergency department based on their presumed diagnosis as noted above, they were advised to followup with a primary care physician in 2-3 days. Patient was agreeable to plan of care. *Note is created using voice recognition software and may contain spelling, syntax or grammatical errors. 01/24/19 13:30 - Vital Signs Vital signs: Temp Pulse Resp BP Pulse Ox 97.8 F 88 18 143/95 H 97 01/24/19 07:39 01/24/19 07:39 01/24/19 07:39 01/24/19 07:39 01/24/19 07:39 Discharge - Discharge Clinical Impression: Abdominal wall pain Condition: Stable Disposition: HOME, SELF-CARE Instructions: Abdominal Pain ([facility]) Additional Instructions: [facility], take the prescribed morphine 15 mg up to 3 times daily for a week, but only take as needed. Prescriptions: Morphine Sulfate [Morphine Ir 15 Mg Tablet] 15 mg PO Q8H PRN #21 tablet PRN Reason: abdominal pain Referrals: [facility] [Provider Group] - Follow up in 3-5 days
[2019-01-24] MEDS ORDERED: MORPHINE SULFATE IR 15 MG TABLET PO ONE (07:22)
[2019-01-24 07:43] VITALS: BP 143/95
== END 2019-01-24 07:43 | disposition home or self-care (01) ==
LOC: ER 04:55
DX: R10.9 Unspecified abdominal pain (principal); R11.10 Vomiting, unspecified; Z98.890 Other specified postprocedural states; X50.0XXA Overexertion from strenuous movement or load, initial encounter; Z79.899 Other long term (current) drug therapy
CPT/HCPCS: 99283

== ENCOUNTER 2019-08-17 02:27 | Emergency (ER) | payer OTHER ==
--- NOTE | 2019-08-17 03:00 | ER Document Report ---
ED GI/ - General Chief Complaint: Abdominal Pain Stated Complaint: ABDOMINAL PAIN Time Seen by Provider: 08/17/19 02:49 Notes: Patient is a 33-year-old male that comes emergency department with chief complaint of abdominal pain. He states he was practicing football with kids and during this activity he felt a sudden sharp searing pain in his mid abdomen and this is worsened, now he is developing nausea. Pain started about 1700. He denies vomiting. He had a bowel movement earlier today. Patient has a complicated surgical history including ventral hernia repair with mesh but also repaired multiple times in the past. TRAVEL OUTSIDE OF THE [place] IN LAST 30 DAYS: No - Related Data Allergies/Adverse Reactions: glycopyrrolate [From Robinul] Allergy (Severe, Verified 09/01/18 02:55) Anaphylaxis prochlorperazine edisylate [From Compazine] Allergy (Mild, Verified 09/01/18 02:55) hives, itchy prochlorperazine maleate [From Compazine] Allergy (Mild, Verified 09/01/18 02:55) hives, itchy Home Medications: testertone, motrin Past Medical History - General Information source: Patient - Social History Smoking Status: Former Smoker Chew tobacco use (# tins/day): Yes Frequency of alcohol use: None Drug Abuse: None Lives with: Family Family History: Reviewed & Not Pertinent, Other - CROHN'S DIS. Patient has suicidal ideation: No Patient has homicidal ideation: No 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 Denies: Hx Coronary Artery Disease, Hx Heart Attack, Hx Hypertension Pulmonary Medical History: Denies: Hx Asthma, Hx Bronchitis, Hx COPD, Hx Pneumonia Neurological Medical History: Denies: Hx Cerebrovascular Accident, Hx Seizures Renal/ Medical History: Denies: Hx Peritoneal Dialysis GI Medical History: Reports: Hx Hiatal Hernia Musculoskeletal Medical History: Denies Hx Arthritis Past Surgical History: Reports: Hx Abdominal Surgery - umbilical hernia, Hx Appendectomy, Hx Bowel Surgery - Several exploratory laparotomies for lysis of adhesions, Hx Vascular Surgery - Repair of traumatic injury to a mesenteric art braxton.. Denies: Hx Pacemaker - Immunizations Hx Diphtheria, Pertussis, Tetanus Vaccination: Yes Review of Systems - Review of Systems Constitutional: No symptoms reported EENT: No symptoms reported Cardiovascular: No symptoms reported Respiratory: No symptoms reported Gastrointestinal: See HPI Genitourinary: No symptoms reported Male Genitourinary: No symptoms reported Musculoskeletal: No symptoms reported Skin: No symptoms reported Hematologic/Lymphatic: No symptoms reported Neurological/Psychological: No symptoms reported Physical Exam - Vital signs Vitals: Temp Pulse Resp BP Pulse Ox 98.1 F 80 16 155/98 H 99 08/17/19 02:32 08/17/19 02:32 08/17/19 02:32 08/17/19 02:32 08/17/19 02:32 - Notes Notes: GENERAL: Alert, interactive, appears uncomfortable HEAD: Normocephalic, atraumatic. EYES: Pupils equal, round, and reactive to light. Extraocular movements intact. ENT: Oral mucosa moist, tongue midline. Oropharynx unremarkable. Airway patent. Nares patent, no nasal septal hematoma, TM's intact. NECK: Full range of motion. Supple. Trachea midline. LUNGS: Clear to auscultation bilaterally, no wheezes, rales, or rhonchi. No respiratory distress. HEART: Regular rate and rhythm. No murmur ABDOMEN: Tender in the general mid abdomen, extensive mid abdominal scars in the ventral area, there is tenderness with wincing but there is no severe guarding. No rigidity. No obvious hernia or incarceration. No erythema. GENITOURINARY: Deferred EXTREMITIES: Moves all 4 extremities spontaneously. No edema, normal radial and dorsalis pedis pulses bilaterally. No cyanosis. BACK: no cervical, thoracic, lumbar midline tenderness. No saddle anesthesia, normal distal neurovascular exam. Moves all extremities in full range of motion. NEUROLOGICAL: Alert and oriented x3. Normal speech. Cranial nerves II through XII grossly intact. PSYCH: Normal affect, normal mood. SKIN: Warm, dry, normal turgor. No rashes or lesions noted. Course - Re-evaluation Re-evalutation: Patient uncomfortable on initial evaluation. He has tenderness over the mid abdomen but he does not have an obvious hernia or incarceration. There is a lot of scarring over the mid abdomen. Vital signs unremarkable. He reports nausea but denies vomiting. Given pain and nausea medication, IV fluids. CBC, chemistry, lipase, lactic acid, urinalysis unremarkable. Patient is improved with symptom management but not completely resolved. Pain is now mostly with movement however. Discussed with patient. There could be a musculoskeletal component to this, however he states that he had this twice like this previously, once he had incarcerating bowel and had emergent surgery, the other time he was fine. He states that he would like to have imaging to make sure he is okay. Because of his extensive surgical history I feel this is appropriate. CAT scan was performed. CAT scan with no acute findings, no herniation of fat or bowel. No bowel obstruction. Constipation. I discussed with patient. Patient is very relieved with this. He states that he would like to take a copy of his CD to his surgeon because they are discussing repair of his widening area at the abdominal muscles. He declines surgical evaluation at this time but states she will follow-up closely return if he worsens in any way. Discussed return precautions in detail. Patient states appreciation and agreement. Stable at time of discharge. - Vital Signs Vital signs: Temp Pulse Resp BP Pulse Ox 98.1 F 73 16 140/92 H 100 08/17/19 02:32 08/17/19 06:23 08/17/19 06:23 08/17/19 06:23 08/17/19 06:23 - Laboratory Result Diagrams: 08/17/19 03:35 08/17/19 03:35 Laboratory results interpreted by me: 08/17/19 03:01 Urine Ketones TRACE H Discharge - Discharge Clinical Impression: Abdominal pain Qualifiers: Abdominal location: generalized Qualified Code(s): R10.84 - Generalized abdominal pain Condition: Stable Disposition: HOME, SELF-CARE Additional Instructions: The mesh appears to be intact. There is no herniation of fat or bowel through the area. This appears to be musculoskeletal injury only, I recommend rest, possibly ice the first day and then heat after that. Take pain medication only if needed, anti-inflammatories can help. He has some constipation as well, take the stool softener as prescribed especially if you take the pain medication. Follow-up closely with surgery as we discussed. Return if you worsen including vomiting, severe worsening pain, fever, or any other concerning or worsening symptoms. Prescriptions: Docusate Sodium [Colace 100 mg Capsule] 100 mg PO ASDIR PRN #30 capsule PRN Reason: Oxycodone HCl/Acetaminophen [Percocet 5-325 mg Tablet] 1 - 2 tab PO TID PRN #8 tablet PRN Reason:
[2019-08-17] MEDS ORDERED: NORMAL SALINE 1000 ML 1,000 ML IV ONE (03:18)
[2019-08-17] MEDS ORDERED: ONDANSETRON HCL INJ/PF 4 MG/2 ML SDV IV ONE ×2 (03:18→07:40)
[2019-08-17] MEDS ORDERED: HYDROMORPHONE HCL INJ/PF 2 MG/ML AMPULE IV ONE ×2 (03:18→07:40)
[2019-08-17 03:43] LABS: ABSOLUTE EOSINOPHILS # (AUTO) 0.5 10^3/uL (0.0-0.6); ABSOLUTE LYMPHOCYTES (AUTO) 3.6 10^3/uL (0.5-4.7); ABSOLUTE MONOCYTES (AUTO) 0.8 10^3/uL (0.1-1.4); ABSOLUTE NEUT (AUTO) 3.6 10^3/uL (1.7-8.2); BASOPHILS % (AUTO) 0.5 % (0-2); EOSINOPHILS % (AUTO) 5.5 % (0-6); HEMATOCRIT 49.2 % (37.9-51.0); HEMOGLOBIN 16.5 g/dL (13.5-17.0); LYMPHOCYTES % (AUTO) 42.7 % (13-45); MEAN CORPUSCULAR HEMOGLOBIN 30.3 pg (27.0-33.4); MEAN CORPUSCULAR HGB CONC 33.6 g/dL (32.0-36.0); MEAN CORPUSCULAR VOLUME 90 fl (80-97); MONOCYTES % (AUTO) 9.1 % (3-13); PLATELET COUNT 280 10^3/uL (150-450); RED BLOOD COUNT 5.46 10^6/uL (4.35-5.55); RED CELL DISTRIBUTION WIDTH 13.1 % (11.5-14.0); SEGMENTED NEUTROPHILS % (AUTO) 42.2 % (42-78); TOTAL CELLS COUNTED % (AUTO) 100 %; WHITE BLOOD COUNT 8.5 10^3/uL (4.0-10.5)
[2019-08-17 03:57] LABS: ALBUMIN 4.5 g/dL (3.5-5.0); ALKALINE PHOSPHATASE 66 U/L (38-126); ANION GAP 12 (5-19); ASPARTATE AMINO TRANSFERASE 24 U/L (17-59); BILIRUBIN,DIRECT 0.1 mg/dL (0.0-0.4); BILIRUBIN,TOTAL 0.3 mg/dL (0.2-1.3); BLOOD UREA NITROGEN 12 mg/dL (7-20); CALCIUM 9.6 mg/dL (8.4-10.2); CARBON DIOXIDE 24 mmol/L (22-30); CHLORIDE 103 mmol/L (98-107); GLUCOSE 91 mg/dL (75-110)
[2019-08-17 04:32] LABS: APPEARANCE,URINE TURBID; BILIRUBIN,URINE NEGATIVE (NEGATIVE); COLOR,URINE YELLOW; GLUCOSE, URINE NEGATIVE (NEGATIVE); KETONES,URINE TRACE mg/dL (NEGATIVE); LEUKOCYTE ESTERASE,URINE NEGATIVE (NEGATIVE); NITRITE,URINE NEGATIVE (NEGATIVE); PROTEIN,URINE NEGATIVE (NEGATIVE); URINE SPECIFIC GRAVITY 1.031; UROBILINOGEN,URINE NEGATIVE mg/dL (<2.0)
--- NOTE | 2019-08-17 07:56 | RADIOLOGY REPORT (SQ) ---
EXAM DESCRIPTION: CT ABDOMEN PELVIS WITH IV CONTRAST COMPLETED DATE/TME: 08/17/2019 00:00 CLINICAL HISTORY: 33 years Male, sharp mid abd pain, nausea, hx of abd surgery Comparison:Feb 20 2018 Technique: IV and oral contrast. Coronal and sagittal reformat. This exam was performed according to our departmental dose-optimization program, which includes automated exposure control, adjustment of the mA and/or kV according to patient size and/or use of iterative reconstruction technique. [facility]: Dose Right [facility]: CareDose [facility]: Dose Right [facility]: Teradose 4D [facility]: [employer] LIMITATIONS: None Findings: Appendectomy. Renal scar. Anterior abdominal wall fascial scar. 1.1 cm epiploic appendage noted anterior to the left mid colon.Stool retention. No ascites. No pneumoperitoneum. No gross evidence of gallbladder inflammation, hepatobiliary obstruction, or portal vein defect. No bowel obstruction. No hydronephrosis or hydroureter. No renal/ureteral stone. No evidence of abdominal aortic aneurysm. No gross evidence of thecal sac/cord or nerve root compression. Inferior thorax, liver, gallbladder, pancreas, spleen, adrenals, renal system, gastrointestinal tract, pelvic organs, lymphatics, vasculature, and musculoskeleton appear otherwise unremarkable. IMPRESSION: No acute findings.
[2019-08-17 08:32] VITALS: BP 127/88
== END 2019-08-17 08:30 | disposition home or self-care (01) ==
LOC: ER 02:27
DX: R10.84 Generalized abdominal pain (principal); R11.0 Nausea; X58.XXXA Exposure to other specified factors, initial encounter; Y93.61 Activity, american tackle football; Z87.891 Personal history of nicotine dependence; Z98.890 Other specified postprocedural states
CPT/HCPCS: 96376; 99284; 96361; 96374; 96375; 36415; 83605; 83690; 85025; 80053; 81001; 74177; J1170; J2405; J7030

== ENCOUNTER 2019-11-24 01:24 | Emergency (ER) | payer OTHER ==
[2019-11-24 05:08] LABS: ABSOLUTE EOSINOPHILS # (AUTO) 0.3 10^3/uL (0.0-0.6); ABSOLUTE LYMPHOCYTES (AUTO) 2.9 10^3/uL (0.5-4.7); ABSOLUTE MONOCYTES (AUTO) 0.6 10^3/uL (0.1-1.4); ABSOLUTE NEUT (AUTO) 4.8 10^3/uL (1.7-8.2); BASOPHILS % (AUTO) 0.5 % (0-2); EOSINOPHILS % (AUTO) 3.9 % (0-6); HEMATOCRIT 53.1 % (37.9-51.0); LYMPHOCYTES % (AUTO) 33.7 % (13-45); MEAN CORPUSCULAR HEMOGLOBIN 30.5 pg (27.0-33.4); MEAN CORPUSCULAR VOLUME 90 fl (80-97); MONOCYTES % (AUTO) 6.7 % (3-13); PLATELET COUNT 270 10^3/uL (150-450); RED BLOOD COUNT 5.91 10^6/uL (4.35-5.55); RED CELL DISTRIBUTION WIDTH 13.1 % (11.5-14.0); SEGMENTED NEUTROPHILS % (AUTO) 55.2 % (42-78); TOTAL CELLS COUNTED % (AUTO) 100 %; WHITE BLOOD COUNT 8.8 10^3/uL (4.0-10.5)
[2019-11-24 05:36] LABS: ALBUMIN 4.9 g/dL (3.5-5.0); ALKALINE PHOSPHATASE 64 U/L (38-126); ANION GAP 12 (5-19); ASPARTATE AMINO TRANSFERASE 28 U/L (17-59); BILIRUBIN,DIRECT 0.3 mg/dL (0.0-0.4); BILIRUBIN,TOTAL 0.7 mg/dL (0.2-1.3); BLOOD UREA NITROGEN 13 mg/dL (7-20); CALCIUM 9.6 mg/dL (8.4-10.2); CARBON DIOXIDE 26 mmol/L (22-30); CHLORIDE 100 mmol/L (98-107); GLUCOSE 105 mg/dL (75-110); POTASSIUM 4.2 mmol/L (3.6-5.0); TOTAL PROTEIN 8.5 g/dL (6.3-8.2)
[2019-11-24 05:58] LABS: APPEARANCE,URINE CLEAR; BILIRUBIN,URINE NEGATIVE (NEGATIVE); COLOR,URINE YELLOW; GLUCOSE, URINE NEGATIVE (NEGATIVE); KETONES,URINE TRACE mg/dL (NEGATIVE); LEUKOCYTE ESTERASE,URINE NEGATIVE (NEGATIVE); NITRITE,URINE NEGATIVE (NEGATIVE); PROTEIN,URINE NEGATIVE (NEGATIVE); URINE SPECIFIC GRAVITY 1.024; UROBILINOGEN,URINE NEGATIVE mg/dL (<2.0)
[2019-11-24] MEDS ORDERED: ONDANSETRON HCL INJ/PF 4 MG/2 ML SDV IV ONE (06:35)
[2019-11-24] MEDS ORDERED: ACETAMINOPHEN 1,000 MG/100 ML RTUPB IV ONE (07:28)
[2019-11-24] MEDS: NORMAL SALINE 1000 ML 1,000 ML IV PRN ×2 (07:42→08:24)
[2019-11-24] MEDS ORDERED: MORPHINE SULFATE 10 MG/ML INJ IV ONE (10:11)
--- NOTE | 2019-11-24 11:00 | RADIOLOGY REPORT (SQ) ---
EXAM DESCRIPTION: CT ABD/PELVIS WITH IV ORAL COMPLETED DATE/TIME: 11/24/2019 10:37 am REASON FOR STUDY: abd pain/midline in surgical scar COMPARISON: 08/19/2019. TECHNIQUE: CT scan of the abdomen and pelvis performed using helical scanning technique with dynamic intravenous contrast injection. No oral contrast. Images reviewed with lung, soft tissue, and bone windows. Reconstructed coronal and sagittal MPR images reviewed. Delayed images for evaluation of the urinary system also acquired. All images stored on PACS. All CT scanners at this facility use dose modulation, iterative reconstruction, and/or weight based d osing when appropriate to reduce radiation dose to as low as reasonably achievable (ALARA). [facility]: Dose Right [facility]: CareDose [facility]: Dose Right [facility]: Teradose 4D [facility]: Esanex CONTRAST TYPE AND DOSE: contrast/concentration: Isovue 350.00 mg/ml; Total Contrast Delivered: 100.0 ml; Total Saline Delivered: 72.0 ml RENAL FUNCTION: BUN 13 creatinine 1.01. RADIATION DOSE: CT Rad equipment meets quality standard of care and radiation dose reduction techniq ues were employed. CTDIvol: 10.8 - 15.3 mGy. DLP: 1602 mGy-cm.. LIMITATIONS: None. FINDINGS: LOWER CHEST: No significant findings. No nodules or infiltrates. LIVER: Normal size. No masses. No dilated ducts. SPLEEN: Normal size. No focal lesions. PANCREAS: No masses. No significant calcifications. No adjacent inflammation or peripancreatic fluid collections. Pancreatic duct not dilated. GALLBLADDER: No identified stones by CT criteria. No inflammatory changes to suggest cholecystitis. ADRENAL GLANDS: No significant masses or asymmetry. RIGHT KIDNEY AND URETER: No solid masses. No significant calcifications. No hydronephrosis or hyd roureter. LEFT KIDNEY AND URETER: No solid masses. No significant calcifications. No hydronephrosis or hydr oureter. AORTA AND VESSELS: No aneurysm. No dissection. Renal arteries, SMA, celiac without stenosis. RETROPERITONEUM: No retroperitoneal adenopathy, hemorrhage or masses. BOWEL AND PERITONEAL CAVITY: No masses or inflammatory changes. No free fluid or peritoneal masses. APPENDIX: Surgically absent. PELVIS: No mass. No free fluid. Normal bladder. ABDOMINAL WALL: No masses. No hernias. BONES: No significant or acute findings. OTHER: No other significant finding. IMPRESSION: NO SIGNIFICANT OR ACUTE FINDING IN THE ABDOMEN OR PELVIS ON CT SCAN WITH IV CONTRAST. TECHNICAL DOCUMENTATION: JOB ID: [id number] Quality ID # [id number]: Final reports with documentation of one or more dose reduction techniques (e.g., Au tomated exposure control, adjustment of the mA and/or kV according to patient size, use of iterative reconstruction technique) 2010 [employer]- All Rights Reserved Reading location - IP/workstation name: [email or web address]
[2019-11-24 12:50] VITALS: BP 131/86
--- NOTE | 2019-11-24 17:45 | ER Document Report ---
Entered by ISABEL RAMIREZ SCRIBE 11/24/19 0641 Acting as scribe for:ANTONIO STEIN MD ED GI/ - General Chief Complaint: Abdominal Pain Stated Complaint: ABDOMINAL PAIN Time Seen by Provider: 11/24/19 04:58 Mode of Arrival: Ambulatory Information source: Patient Notes: This 34 year old male patient presents to the emergency department today with complaints of periumbilical abdominal pain. 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 Patient is not the best historian regarding these prior surgeries but he does mention that he has "torn mesh and had incarcerated bowel". According to [facility] records several of these abdominal surgeries were exploratory laparotomies for lyses of adhesions. TRAVEL OUTSIDE OF THE [place] IN LAST 30 DAYS: No - Related Data Allergies/Adverse Reactions: glycopyrrolate [From Robinul] Allergy (Severe, Verified 09/01/18 02:55) Anaphylaxis prochlorperazine edisylate [From Compazine] Allergy (Mild, Verified 09/01/18 02:55) hives, itchy prochlorperazine maleate [From Compazine] Allergy (Mild, Verified 09/01/18 02:55) hives, itchy Past Medical History - General Information source: Patient - Social History Smoking Status: Former Smoker Cigarette use (# per day): No Chew tobacco use (# tins/day): Yes Frequency of alcohol use: None Drug Abuse: None Lives with: Family Family History: Reviewed & Not Pertinent, Other - CROHN'S DIS. 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 denies: Vomiting Genitourinary: No symptoms reported Male Genitourinary: No symptoms reported Musculoskeletal: No symptoms reported Skin: No symptoms reported Hematologic/Lymphatic: No symptoms reported Neurological/Psychological: No symptoms reported -: Yes All other systems reviewed and negative Physical Exam - Vital signs Vitals: Temp Pulse Resp BP Pulse Ox 98.7 F 80 16 139/90 H 100 11/24/19 01:36 11/24/19 01:36 11/24/19 01:36 11/24/19 01:36 11/24/19 01:36 - Notes Notes: Physical Exam: General: Alert, appears somewhat uncomfortable. HEENT: Normocephalic. Atraumatic. Right extraocular movements intact, previous left eye trauma, keeps eyelids on left shut. Oropharynx clear. Neck: Supple. Non-tender. Respiratory: No respiratory distress. Clear and equal breath sounds bilaterally. Cardiovascular: Regular rate and rhythm. Abdominal: Healed midline surgical scar. Periumbilical tenderness with palpation, no palpable masses or bulging. No distension. Normal Bowel Sounds. Back: No gross abnormalities. Extremities: Moves all four extremities. Upper extremities: Normal inspection. Normal ROM. Lower extremities: Normal inspection. No edema. Normal ROM. Neurological: Normal cognition. AAOx4. Normal speech. Psychological: Normal affect. Normal Mood. Skin: Warm. Dry. Normal color. Course - Re-evaluation Re-evalutation: 11/24/19 12:20 Patient still complains of abdominal pain. There is no surgical abdomen or any incarceration of any intestinal contents on CT scan. CT scan of abdomen and pelvis with oral and IV contrast does not disclose any acute inflammatory or obstructive disease or tears in his abdomen. - Vital Signs Vital signs: Temp Pulse Resp BP Pulse Ox 97.5 F 82 20 128/77 H 100 11/24/19 08:35 11/24/19 08:35 11/24/19 08:35 11/24/19 08:35 11/24/19 08:35 - Laboratory Result Diagrams: 11/24/19 04:40 11/24/19 04:40 Laboratory results interpreted by me: 11/24/19 11/24/19 11/24/19 04:40 04:40 04:40 RBC 5.91 H Hgb 18.0 H Hct 53.1 H Total Protein 8.5 H Urine Ketones TRACE H Discharge - Discharge Clinical Impression: Abdominal pain in male Condition: Stable Disposition: HOME, SELF-CARE Instructions: Abdominal Pain ([facility]) Prescriptions: Tramadol HCl [Ultram 50 mg Tablet] 50 mg PO Q6HP PRN #12 tab PRN Reason: I personally performed the services described in the documentation, reviewed and edited the documentation which was dictated to the scribe in my presence, and it accurately records my words and actions.
== END 2019-11-24 12:50 | disposition home or self-care (01) ==
LOC: ER 01:24
DX: R10.33 Periumbilical pain (principal); R11.0 Nausea; Z86.711 Personal history of pulmonary embolism
CPT/HCPCS: 99284; 96361; 96375; 96365; 36415; 83690; 85025; 80053; 81001; 74177; J2270; J2405; J7030; J0131

== ENCOUNTER 2020-06-11 01:30 | Emergency (ER) | payer OTHER ==
[2020-06-11] MEDS ORDERED: NORMAL SALINE 1000 ML 1,000 ML IV ONE (10:03)
[2020-06-11] MEDS ORDERED: MORPHINE SULFATE 10 MG/ML INJ IV ONE ×2 (10:03→12:57)
[2020-06-11] MEDS ORDERED: ONDANSETRON HCL INJ/PF 4 MG/2 ML SDV IV ONE ×2 (10:03→12:57)
[2020-06-11 10:50] LABS: ABSOLUTE EOSINOPHILS # (AUTO) 0.2 10^3/uL (0.0-0.6); ABSOLUTE LYMPHOCYTES (AUTO) 2.1 10^3/uL (0.5-4.7); ABSOLUTE MONOCYTES (AUTO) 0.5 10^3/uL (0.1-1.4); ABSOLUTE NEUT (AUTO) 4.9 10^3/uL (1.7-8.2); BASOPHILS % (AUTO) 0.4 % (0-2); EOSINOPHILS % (AUTO) 2.7 % (0-6); HEMATOCRIT 49.9 % (37.9-51.0); HEMOGLOBIN 17.1 g/dL (13.5-17.0); LYMPHOCYTES % (AUTO) 26.6 % (13-45); MEAN CORPUSCULAR HEMOGLOBIN 31.4 pg (27.0-33.4); MEAN CORPUSCULAR HGB CONC 34.2 g/dL (32.0-36.0); MEAN CORPUSCULAR VOLUME 92 fl (80-97); MONOCYTES % (AUTO) 6.6 % (3-13); PLATELET COUNT 263 10^3/uL (150-450); RED BLOOD COUNT 5.43 10^6/uL (4.35-5.55); RED CELL DISTRIBUTION WIDTH 13.5 % (11.5-14.0); SEGMENTED NEUTROPHILS % (AUTO) 63.7 % (42-78); TOTAL CELLS COUNTED % (AUTO) 100 %; WHITE BLOOD COUNT 7.7 10^3/uL (4.0-10.5)
[2020-06-11 10:53] LABS: APPEARANCE,URINE CLEAR; BILIRUBIN,URINE NEGATIVE (NEGATIVE); COLOR,URINE YELLOW; GLUCOSE, URINE NEGATIVE (NEGATIVE); KETONES,URINE NEGATIVE (NEGATIVE); LEUKOCYTE ESTERASE,URINE TRACE (NEGATIVE); NITRITE,URINE NEGATIVE (NEGATIVE); PROTEIN,URINE NEGATIVE (NEGATIVE); URINE SPECIFIC GRAVITY 1.023; UROBILINOGEN,URINE NEGATIVE mg/dL (<2.0)
[2020-06-11 11:12] LABS: ALBUMIN 5.1 g/dL (3.5-5.0); ALKALINE PHOSPHATASE 62 U/L (38-126); ANION GAP 12 (5-19); ASPARTATE AMINO TRANSFERASE 25 U/L (17-59); BILIRUBIN,TOTAL 0.5 mg/dL (0.2-1.3); BLOOD UREA NITROGEN 11 mg/dL (7-20); CALCIUM 9.8 mg/dL (8.4-10.2); CARBON DIOXIDE 27 mmol/L (22-30); CHLORIDE 100 mmol/L (98-107); GLUCOSE 94 mg/dL (75-110); POTASSIUM 4.7 mmol/L (3.6-5.0); TOTAL PROTEIN 8.5 g/dL (6.3-8.2)
--- NOTE | 2020-06-11 13:20 | RADIOLOGY REPORT (SQ) ---
EXAM DESCRIPTION: CT ABD/PELVIS WITH IV ORAL IMAGES COMPLETED DATE/TIME: 06/11/2020 12:54 pm REASON FOR STUDY: abd pain/hx surgeries COMPARISON: None. TECHNIQUE: CT scan of the abdomen and pelvis performed with intravenous and oral contrast using ana luisa jazmyn scanning technique with dynamic intravenous contrast injection. Images reviewed with lung, soft t issue, and bone windows. Reconstructed coronal and sagittal MPR images reviewed. Delayed images for e valuation of the urinary system also acquired. All images stored on PACS. All CT scanners at this facility use dose modulation, iterative reconstruction, and/or weight based d osing when appropriate to reduce radiation dose to as low as reasonably achievable (ALARA). [facility]: Dose Right [facility]: CareDose [facility]: Dose Right [facility]: Teradose 4D [facility]: UP Online CONTRAST TYPE AND DOSE: contrast/concentration: Isovue 350.00 mmol/ml; Total Contrast Delivered: 100 .0 ml; Total Saline Delivered: 71.9 ml RENAL FUNCTION: GFR > 60. RADIATION DOSE: CT Rad equipment meets quality standard of care and radiation dose reduction techniq ues were employed. CTDIvol: 14.5 - 18.9 mGy. DLP: 1996 mGy-cm. . LIMITATIONS: None. FINDINGS: LOWER CHEST: No significant findings. No nodules or infiltrates. LIVER: Normal size. No masses. No dilated ducts. SPLEEN: Normal size. No focal lesions. PANCREAS: No masses. No significant calcifications. No adjacent inflammation or peripancreatic fluid collections. Pancreatic duct not dilated. GALLBLADDER: No identified stones by CT criteria. No inflammatory changes to suggest cholecystitis. ADRENAL GLANDS: No significant masses or asymmetry. RIGHT KIDNEY AND URETER: No solid masses. No significant calcifications. No hydronephrosis or hyd roureter. LEFT KIDNEY AND URETER: No solid masses. No significant calcifications. No hydronephrosis or hydr oureter. AORTA AND VESSELS: No aneurysm. No dissection. Renal arteries, SMA, celiac without stenosis. RETROPERITONEUM: No retroperitoneal adenopathy, hemorrhage or masses. BOWEL AND PERITONEAL CAVITY: No obstruction. No visualized masses. No free fluid. No inflammatory ch anges or thickening of bowel wall. APPENDIX: Surgically absent. PELVIS: No significant masses. Normal bladder. No free fluid. ABDOMINAL WALL: Several small fat containing anterior abdominal wall hernias. BONES: No significant or acute findings. OTHER: No other significant finding. IMPRESSION: No acute findings. TECHNICAL DOCUMENTATION: JOB ID: [id number] Quality ID # [id number]: Final reports with documentation of one or more dose reduction techniques (e.g., Au tomated exposure control, adjustment of the mA and/or kV according to patient size, use of iterative reconstruction technique) 2010 [employer]- All Rights Reserved Reading location - IP/workstation name: [email or web address]
[2020-06-11 13:34] VITALS: BP 132/92
--- NOTE | 2020-06-11 13:52 | ER Document Report ---
ED General - General Chief Complaint: Abdominal Pain Stated Complaint: ABDOMINAL PAIN Time Seen by Provider: 06/11/20 07:56 Mode of Arrival: Ambulatory Information source: Patient TRAVEL OUTSIDE OF THE [place] IN LAST 30 DAYS: No - HPI Notes: Patient complains of abdominal pain. He states that he has a long history of chronic abdominal pain with multiple surgeries. He states that recently he was helping a friend put up some fencing and after this he began to develop severe abdominal pain. He states it is in the center of the abdomen over his previous scars. It is a tearing sensation. It is constant. Is worse with movement and better with rest. It radiates up and down the center of his abdomen. He has had some nausea but no significant vomiting or diarrhea. No fever sweats or chills. - Related Data Allergies/Adverse Reactions: glycopyrrolate [From Panjo] Allergy (Severe, Verified 06/11/20 02:00) Anaphylaxis prochlorperazine edisylate [From Compazine] Allergy (Mild, Verified 06/11/20 02:00) hives, itchy prochlorperazine maleate [From Compazine] Allergy (Mild, Verified 06/11/20 02:00) hives, itchy Home Medications: VALIUM Past Medical History - General Information source: Patient - Social History Smoking Status: Former Smoker Chew tobacco use (# tins/day): Yes Frequency of alcohol use: Occasional Drug Abuse: None Family History: Reviewed & Not Pertinent, Other - CROHN'S DIS. Patient has homicidal ideation: No 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 Denies: Hx Coronary Artery Disease, Hx Heart Attack, Hx Hypertension Pulmonary Medical History: Denies: Hx Asthma, Hx Bronchitis, Hx COPD, Hx Pneumonia Neurological Medical History: Denies: Hx Cerebrovascular Accident, Hx Seizures Renal/ Medical History: Denies: Hx Peritoneal Dialysis GI Medical History: Reports: Hx Hiatal Hernia Musculoskeletal Medical History: Denies Hx Arthritis Past Surgical History: Reports: Hx Abdominal Surgery - umbilical hernia, abd mesh, Hx Appendectomy, Hx Bowel Surgery - Several exploratory laparotomies for lysis of adhesions, Hx Vascular Surgery - 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 Denies: Hx Pacemaker - Immunizations Hx Diphtheria, Pertussis, Tetanus Vaccination: Yes Review of Systems - Review of Systems Constitutional: denies: Chills, Fever Cardiovascular: denies: Chest pain, Palpitations Respiratory: denies: Cough, Short of breath -: Yes All other systems reviewed and negative Physical Exam - Vital signs Vitals: Temp Pulse Resp BP Pulse Ox 98.7 F 87 20 133/85 H 100 06/11/20 01:50 06/11/20 01:50 06/11/20 01:50 06/11/20 01:50 06/11/20 01:50 Interpretation: Normal - General General appearance: Appears well, Alert - HEENT Head: Normocephalic, Atraumatic Eyes: Normal Pupils: PERRL - Respiratory Respiratory status: No respiratory distress Chest status: Nontender Breath sounds: Normal Chest palpation: Normal - Cardiovascular Rhythm: Regular Heart sounds: Normal auscultation Murmur: No - Abdominal Inspection: Healed incision Distension: No distension Bowel sounds: Normal Tenderness: Tender - Patient has diffuse abdominal tenderness to palpation with voluntary guarding. No rebound or surgical abdominal signs. Organomegaly: No organomegaly - Back Back: Normal, Nontender - Extremities General upper extremity: Normal inspection, Nontender, Normal color, Normal ROM, Normal temperature General lower extremity: Normal inspection, Nontender, Normal color, Normal ROM, Normal temperature, Normal weight bearing. No: Anabela's sign - Neurological Neuro grossly intact: Yes Cognition: Normal Orientation: AAOx4 [place] Coma Scale Eye Opening: Spontaneous [place] Coma Scale Verbal: Oriented [place] Coma Scale Motor: Obeys Commands [place] Coma Scale Total: 15 Speech: Normal Motor strength normal: LUE, RUE, LLE, RLE Sensory: Normal - Psychological Associated symptoms: Normal affect, Normal mood - Skin Skin Temperature: Warm Skin Moisture: Dry Skin Color: Normal Course - Re-evaluation Re-evalutation: 06/11/20 13:50 Patient presents with acute exacerbation of his chronic abdominal pain. Vital signs laboratories and imaging show no evidence of acute process. At this time seems reasonable for patient be discharged home to follow-up with his family physician. - Vital Signs Vital signs: Temp Pulse Resp BP Pulse Ox 98.2 F 78 18 132/92 H 98 06/11/20 13:31 06/11/20 13:31 06/11/20 13:31 06/11/20 13:31 06/11/20 13:31 - Laboratory Result Diagrams: 06/11/20 10:28 06/11/20 10:28 Laboratory results interpreted by me: 06/11/20 06/11/20 06/11/20 10:28 10:28 10:28 Hgb 17.1 H Total Protein 8.5 H Albumin 5.1 H Ur Leukocyte Esterase TRACE H Urine Ascorbic Acid 40 H - Diagnostic Test Radiology reviewed: Image reviewed, Reports reviewed Discharge - Discharge Clinical Impression: Generalized abdominal pain Condition: Stable Disposition: HOME, SELF-CARE Instructions: Abdominal Pain ([facility]) Prescriptions: Hydrocodone/Acetaminophen [[place] 5-325 mg Tablet] 1 tab PO Q6 PRN 3 Days #12 tablet PRN Reason: For Back Pain Referrals: ISAAC PANIAGUA MD [NO LOCAL MD] - Follow up as needed
== END 2020-06-11 14:05 | disposition home or self-care (01) ==
LOC: ER 01:30
DX: R10.84 Generalized abdominal pain (principal); G89.29 Other chronic pain; R11.0 Nausea; Z88.8 Allergy status to other drugs, medicaments and biological substances; Z79.899 Other long term (current) drug therapy; Z87.891 Personal history of nicotine dependence
CPT/HCPCS: 96376; 99285; 96361; 96374; 96375; 36415; 83690; 85025; 80053; 81001; 74177; J2270; J2405; J7030

== ENCOUNTER 2020-09-03 18:24 | Emergency (ER) | payer OTHER ==
--- NOTE | 2020-09-03 19:27 | ER Document Report ---
ED GI/ - General Chief Complaint: Scrotal Pain, Acute Onset Stated Complaint: PENILE PAIN/POST VASECTOMY PAIN Time Seen by Provider: 09/03/20 19:26 Mode of Arrival: Ambulatory Information source: Patient TRAVEL OUTSIDE OF THE [place] IN LAST 30 DAYS: No - Related Data Allergies/Adverse Reactions: glycopyrrolate [From Robinul] Allergy (Severe, Verified 06/11/20 02:00) Anaphylaxis prochlorperazine edisylate [From Compazine] Allergy (Mild, Verified 06/11/20 02:00) hives, itchy prochlorperazine maleate [From Compazine] Allergy (Mild, Verified 06/11/20 02:00) hives, itchy Past Medical History - Social History Family History: Reviewed & Not Pertinent, Other - CROHN'S DIS. 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 Denies: Hx Coronary Artery Disease, Hx Heart Attack, Hx Hypertension Pulmonary Medical History: Denies: Hx Asthma, Hx Bronchitis, Hx COPD, Hx Pneumonia Neurological Medical History: Denies: Hx Cerebrovascular Accident, Hx Seizures Renal/ Medical History: Denies: Hx Peritoneal Dialysis GI Medical History: Reports: Hx Hiatal Hernia Musculoskeletal Medical History: Denies Hx Arthritis Past Surgical History: Reports: Hx Abdominal Surgery - umbilical hernia, abd mesh, Hx Appendectomy, Hx Bowel Surgery - Several exploratory laparotomies for lysis of adhesions, Hx Vascular Surgery - 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 Denies: Hx Pacemaker - Immunizations Hx Diphtheria, Pertussis, Tetanus Vaccination: Yes Physical Exam - Vital signs Vitals: Temp Pulse Resp BP Pulse Ox 98.9 F 96 16 148/96 H 98 09/03/20 18:32 09/03/20 18:32 09/03/20 18:32 09/03/20 18:32 09/03/20 18:32 Course - Vital Signs Vital signs: Temp Pulse Resp BP Pulse Ox 98.9 F 96 16 148/96 H 98 09/03/20 18:32 09/03/20 18:32 09/03/20 18:32 09/03/20 18:32 09/03/20 18:32
--- NOTE | 2020-09-03 19:30 | ER Document Report ---
ED Medical Screen (RME) - General Chief Complaint: Scrotal Pain, Acute Onset Stated Complaint: PENILE PAIN/POST VASECTOMY PAIN Time Seen by Provider: 09/03/20 19:26 Mode of Arrival: Ambulatory Information source: Patient Notes: 34-year-old male presented to ED for left testicle pain started today. He did have a vasectomy and to 12 days ago. He states he has had no problems until today he is having pain on the left side. He states he has not noticed any redness or swelling but it is extremely painful. He states he walks with a strange gait due to the pain. We will get urine and ultrasound and he will be seen by another provider. I have greeted and performed a rapid initial assessment of this patient. A comprehensive ED assessment and evaluation of the patient, analysis of test results and completion of medical decision making process will be conducted by an additional ED providers. TRAVEL OUTSIDE OF THE [place] IN LAST 30 DAYS: No - Related Data Allergies/Adverse Reactions: glycopyrrolate [From Robinul] Allergy (Severe, Verified 06/11/20 02:00) Anaphylaxis prochlorperazine edisylate [From Compazine] Allergy (Mild, Verified 06/11/20 02:00) hives, itchy prochlorperazine maleate [From Compazine] Allergy (Mild, Verified 06/11/20 02:00) hives, itchy Past Medical History 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 Denies: Hx Coronary Artery Disease, Hx Heart Attack, Hx Hypertension Pulmonary Medical History: Denies: Hx Asthma, Hx Bronchitis, Hx COPD, Hx Pneumonia Neurological Medical History: Denies: Hx Cerebrovascular Accident, Hx Seizures Renal/ Medical History: Denies: Hx Peritoneal Dialysis GI Medical History: Reports: Hx Hiatal Hernia Musculoskeltal Medical History: Denies Hx Arthritis Past Surgical History: Reports: Hx Abdominal Surgery - umbilical hernia, abd mesh, Hx Appendectomy, Hx Bowel Surgery - Several exploratory laparotomies for lysis of adhesions, Hx Vascular Surgery - 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 Denies: Hx Pacemaker - Immunizations Hx Diphtheria, Pertussis, Tetanus Vaccination: Yes Physical Exam - Vital signs Vitals: Temp Pulse Resp BP Pulse Ox 98.9 F 96 16 148/96 H 98 09/03/20 18:32 09/03/20 18:32 09/03/20 18:32 09/03/20 18:32 09/03/20 18:32 Course - Vital Signs Vital signs: Temp Pulse Resp BP Pulse Ox 98.9 F 96 16 148/96 H 98 09/03/20 18:32 09/03/20 18:32 09/03/20 18:32 09/03/20 18:32 09/03/20 18:32
--- NOTE | 2020-09-03 20:43 | RADIOLOGY REPORT (SQ) ---
EXAM DESCRIPTION: US SCROTUM COMPLETED DATE/TME: 09/03/2020 20:16 CLINICAL HISTORY: 34 years, Male, Left testicle pain post vasectomy Findings: Right testis measures 3.0 x 3.0 x 2.0 cm. Left testis measures 3.0 x 2.0 x 2.0 cm. Testes are symmetric and homogeneous bilaterally. Vascular flow is preserved within the testes on color and spectral Doppler imaging. Epididymis are symmetric bilaterally. Small left epididymal spermatoceles measuring 3 mm. IMPRESSION: No torsion. No significant acute suspicious findings.
[2020-09-03 21:34] LABS: APPEARANCE,URINE CLEAR; BILIRUBIN,URINE NEGATIVE (NEGATIVE); COLOR,URINE YELLOW; GLUCOSE, URINE NEGATIVE (NEGATIVE); KETONES,URINE NEGATIVE (NEGATIVE); LEUKOCYTE ESTERASE,URINE NEGATIVE (NEGATIVE); NITRITE,URINE NEGATIVE (NEGATIVE); PROTEIN,URINE NEGATIVE (NEGATIVE); URINE SPECIFIC GRAVITY 1.027; UROBILINOGEN,URINE NEGATIVE mg/dL (<2.0)
[2020-09-03 22:21] VITALS: BP 152/92
== END 2020-09-04 00:09 | disposition left against medical advice (07) ==
LOC: ER 18:24
DX: N50.812 Left testicular pain (principal); N50.82 Scrotal pain; Z98.52 Vasectomy status; Z86.711 Personal history of pulmonary embolism
CPT/HCPCS: 76870; 81001; 87086; 93976; 99281